=== PATIENT | female | born 1935 | race Two or more races ===

== ENCOUNTER 2018-01-09 07:14 | Day surgery (SDC) | payer MEDICARE ==
[~2018-01-09 07:14] MED LIST: ? HTN MED; ALBU90OI INH; ALBU90OI61 INH; ASCO500 PO; ASPI81CH PO; ASPI81EC PO; Antivert25 MG PO; CALCA500CH PO; CALCAVITD PO; CARV3.125 PO; CEPH500 PO; CIPR500 PO; CLOP75 PO; CRANBERRY250 MG PO; DOCU100 PO; DULERA 200 MCG/13 GM INH; FERR325 PO; FISH1000 PO; FURO100EL; FURO20 PO; GABA100 PO; HYDACE25S PR; HYDACE5 PO; HYDACE5325 PO; HYDR1TAB94 PO; IBUP200; ISOMON20; Isosorbide Mono30 MG PO; LEVFLO500 PO; LEVO750 PO; LISHYD1012 PO; LISI5 PO; Lisinopril2.5 MG; MULTI VITAMIN1 EACH PO; NADO20 PO; NEBI10 PO; NIFE10 PO; OMEP20ER PO; OMEPRAZOLE MAGN20 MG PO; POTA8; POTCHL10ER PO; POTCHL20ER PO; PRAV20 PO; Percocet 5-3251 EACH PO; Pravachol40 MG PO; RANI150 PO; ZESTORETIC 20-121 E1 PO; Zofran4 MG PO
[2018-01-20 09:07] LABS: Performing Lab SYM; Test Name FLOW
[2018-01-21 10:00] LABS: Result SEE PATHOTH RESULTS
[2018-02-09] MEDS ORDERED: SPIR25 PO ×2 (09:00→09:01)
[2018-02-09] MEDS ORDERED: FURO20 PO (09:01)
[2018-02-09] MEDS ORDERED: One Daily1 EAC3 PO (09:02)
[2018-02-09] MEDS ORDERED: CALTRATE 600+D1 EAC1 PO (09:02)
== END 2018-01-09 23:07 | disposition home or self-care (01) ==
LOC: MOI MAM 07:14
PROVIDERS: Nurse Practitioner Family
PROC: 0H9T3ZX Drainage of Right Breast, Percutaneous Approach, Diagnostic (ICD-10-PCS; principal; 2018-01-09)
PROC: 0HBT3ZX Excision of Right Breast, Percutaneous Approach, Diagnostic (ICD-10-PCS; principal; 2018-01-09)
DX: C50.411 Malignant neoplasm of upper-outer quadrant of right female breast (principal); Z17.1 Estrogen receptor negative status [ER-]
CPT/HCPCS: 19000; 19083; 76942; 77065; 88108; 88305; 88342; 88360; 88363; 88374; A4648

== ENCOUNTER 2018-02-10 07:59 | Day surgery (SDC) | payer MEDICARE ==
[~2018-02-10] VITALS: Ht 152.4 cm; Wt 86.6 kg
[~2018-02-10 07:59] MED LIST changes: +CALTRATE 600+D1 EAC1 PO; +One Daily1 EAC3 PO; +SPIR25 PO
[2018-02-16 15:22] LABS: Performing Lab SYMBIODX; Test Name TISSUE BLOCK
[2018-02-25 09:09] LABS: Result SEE PATHOTH RESULTS
== END 2018-02-11 10:30 | disposition home or self-care (01) ==
LOC: NM 07:59 → ORSCMMR 07:59 → NM 09:00 → ORSCMMR 13:33 → SURS 13:33 → NM 02-11 10:30 → SURS 02-11 10:30
PROVIDERS: Surgery
PROC: 07B50ZX Excision of Right Axillary Lymphatic, Open Approach, Diagnostic (ICD-10-PCS; principal; 2018-02-10 11:00)
PROC: 0HTT0ZZ Resection of Right Breast, Open Approach (ICD-10-PCS; principal; 2018-02-10 11:00)
DX: C50.411 Malignant neoplasm of upper-outer quadrant of right female breast (principal); Z17.1 Estrogen receptor negative status [ER-]; D36.0 Benign neoplasm of lymph nodes; I10 Essential (primary) hypertension; J44.9 Chronic obstructive pulmonary disease, unspecified; I50.9 Heart failure, unspecified; I25.2 Old myocardial infarction; Z99.81 Dependence on supplemental oxygen; K21.9 Gastro-esophageal reflux disease without esophagitis; Z79.899 Other long term (current) drug therapy; E66.01 Morbid (severe) obesity due to excess calories; Z68.37 Body mass index [BMI] 37.0-37.9, adult; Z87.891 Personal history of nicotine dependence
CPT/HCPCS: 38792; 88307; 88341; 88342; 88360; 88374; 94640; 94760; A9520; J1100; J2405; J3010; J7120; Q9968

== ENCOUNTER 2018-07-03 16:04 | Emergency (ER) | payer MEDICARE ==
[~2018-07-03] VITALS: Ht 152.4 cm; Wt 91.6 kg
[2018-07-03 16:52] LABS: BASOPHILS ABSOLUTE AUTO 0.09 K/mm3 (0.00-0.23); BASOPHILS PERCENT AUTO 1 % (0-2); EOSINOPHILS ABSOLUTE AUTO 0.33 K/mm3 (0.00-0.68); EOSINOPHILS PERCENT AUTO 5 % (0-6); Hematocrit 38.4 % (33.0-51.0); Hemoglobin 12.2 g/dL (11.5-16.0); IMMATURE GRAN ABSOLUTE AUTO 0.02 K/mm3 (0.00-0.10); IMMATURE GRAN PERCENT AUTO 0 % (0-1); LYMPHOCYTES ABSOLUTE AUTO 0.95 K/mm3 (0.84-5.20); LYMPHOCYTES PERCENT AUTO 14 % (21-46); MONOCYTES ABSOLUTE AUTO 0.77 K/mm3 (0.16-1.47); MONOCYTES PERCENT AUTO 12 % (4-13); Mean Corpuscular HGB 27.6 pg (26.0-34.0); Mean Corpuscular HGB Conc 31.8 g/dL (31.5-36.5); Mean Corpuscular Volume 87 fL (80-100); Mean Platelet Volume 9.6 fL (9.1-12.4); NEUTROPHILS ABSOLUTE AUTO 4.55 K/mm3 (1.96-9.15); NEUTROPHILS PERCENT AUTO 68 % (41-73); Platelet Count 334 K/mm3 (150-400); RDW Coefficient Variation 14.6 % (11.7-14.2); RDW Standard Deviation 46.5 fL (35.1-46.3); Red Blood Cell Count 4.42 M/mm3 (3.80-5.20); White Blood Cell Count 6.71 K/mm3 (4.00-11.30)
[2018-07-03 17:21] LABS: Alanine Aminotransfer (ALT/SGP 42 U/L (12-78); Albumin, Blood 3.6 g/dL (3.4-5.0); Albumin/Globulin Ratio 0.8 (0.8-1.8); Alk Phos 140 U/L (50-136); Anion Gap 9 mmol/L (6-16); Aspartate Aminotrans (AST/SGOT 32 U/L (12-37); Bilirubin, Total 0.5 mg/dL (0.1-1.0); Blood Urea Nitrogen 22 mg/dL (8-24); Bun/Creatinine Ratio 21.8 (12.0-20.0); CO2, Blood 28 mmol/L (21-32); Chloride, Blood 97 mmol/L (98-108); Creatinine, Blood 1.01 mg/dL (0.40-1.00); Globulin, Blood 4.4 g/dL (2.2-4.0); Glomerular Filtration Rate 55 (60-); Glucose, Blood 101 mg/dL (70-99); Potassium, Blood 4.3 mmol/L (3.5-5.5); Sodium, Blood 134 mmol/L (136-145); Troponin I <0.015 ng/mL (0.000-0.040)
[2018-07-03] MEDS ORDERED: Zithromax250 MG PO (19:11)
== END 2018-07-03 21:04 | disposition home or self-care (01) ==
LOC: ER 16:04
PROVIDERS: Emergency Medicine
DX: I50.9 Heart failure, unspecified (principal); J40 Bronchitis, not specified as acute or chronic; I25.2 Old myocardial infarction; Z88.0 Allergy status to penicillin; Z88.2 Allergy status to sulfonamides; Z88.1 Allergy status to other antibiotic agents; Z88.5 Allergy status to narcotic agent; Z88.8 Allergy status to other drugs, medicaments and biological substances; Z79.899 Other long term (current) drug therapy; Z87.891 Personal history of nicotine dependence
CPT/HCPCS: 36415; 71046; 80053; 83880; 84484; 85025; 93005; 93010; 96374; 99285-25; J1940

== ENCOUNTER 2018-07-07 07:55 | Inpatient (IN) | payer MEDICARE ==
[~2018-07-07] VITALS: Ht 152.4 cm; Wt 91.1 kg
[~2018-07-07 07:55] MED LIST changes: +Zithromax250 MG PO
[2018-07-07 08:23] LABS: BASOPHILS ABSOLUTE AUTO 0.09 K/mm3 (0.00-0.23); BASOPHILS PERCENT AUTO 1 % (0-2); EOSINOPHILS ABSOLUTE AUTO 0.51 K/mm3 (0.00-0.68); EOSINOPHILS PERCENT AUTO 6 % (0-6); Hematocrit 40.2 % (33.0-51.0); Hemoglobin 12.4 g/dL (11.5-16.0); IMMATURE GRAN ABSOLUTE AUTO 0.02 K/mm3 (0.00-0.10); IMMATURE GRAN PERCENT AUTO 0 % (0-1); LYMPHOCYTES PERCENT AUTO 18 % (21-46); MONOCYTES PERCENT AUTO 9 % (4-13); Mean Corpuscular HGB 27.7 pg (26.0-34.0); Mean Corpuscular HGB Conc 30.8 g/dL (31.5-36.5); Mean Platelet Volume 9.5 fL (9.1-12.4); NEUTROPHILS ABSOLUTE AUTO 5.24 K/mm3 (1.96-9.15); NEUTROPHILS PERCENT AUTO 66 % (41-73); Platelet Count 396 K/mm3 (150-400); RDW Coefficient Variation 14.6 % (11.7-14.2); RDW Standard Deviation 47.5 fL (35.1-46.3); Red Blood Cell Count 4.47 M/mm3 (3.80-5.20); White Blood Cell Count 7.96 K/mm3 (4.00-11.30)
[2018-07-07 08:26] LABS: Mean Corpuscular Volume 90 fL (80-100)
[2018-07-07 08:34] LABS: PCO2 Arterial 59.2 mmHg (35-45); PO2 Arterial 416 mmHg (80-100); pH Blood Arterial 7.28 (7.35-7.45)
[2018-07-07 08:34] LABS: Source, Urine Catheter
[2018-07-07 08:38] LABS: Bilirubin, Urine Neg (Neg); Blood, Urine 1+ (Neg); Glucose Qualitative, Urine Neg (Neg); Ketones, Urine Neg (Neg); Leukocyte Esterase, Urine Neg (Neg); Nitrite, Urine Neg (Neg); Protein, Urine 2+ (Neg); Specific Gravity, Urine 1.015 (1.003-1.022); Urobilinogen, Urine NORM (Normal)
[2018-07-07 08:47] LABS: Albumin, Blood 3.4 g/dL (3.4-5.0); Albumin/Globulin Ratio 0.8 (0.8-1.8); Bilirubin, Total 0.5 mg/dL (0.1-1.0); Bun/Creatinine Ratio 24.3 (12.0-20.0); Calcium, Blood 8.5 mg/dL (8.5-10.1); Creatinine, Blood 1.11 mg/dL (0.40-1.00); Globulin, Blood 4.5 g/dL (2.2-4.0); Potassium, Blood 4.5 mmol/L (3.5-5.5); Total Protein, Blood 7.9 g/dL (6.4-8.2); Troponin I 0.052 ng/mL (0.000-0.040)
[2018-07-07 08:54] LABS: Appearance, Urine Clear (Clear); Color, Urine Yellow (P-Yellow)
[2018-07-07 09:00] LABS: Bacteria Not Seen /hpf; Red Blood Cells, Urine 0-2 /hpf (0-2); Squamous Epithelial Cells Rare /hpf (Few)
[2018-07-08 05:12] LABS: PCO2 Arterial 43.4 mmHg (35-45); PO2 Arterial 78.6 mmHg (80-100); pH Blood Arterial 7.48 (7.35-7.45)
[2018-07-08 07:44] LABS: BASOPHILS ABSOLUTE AUTO 0.01 K/mm3 (0.00-0.23); BASOPHILS PERCENT AUTO 0 % (0-2); EOSINOPHILS PERCENT AUTO 0 % (0-6); Hematocrit 31.2 % (33.0-51.0); Hemoglobin 10.1 g/dL (11.5-16.0); IMMATURE GRAN ABSOLUTE AUTO 0.03 K/mm3 (0.00-0.10); IMMATURE GRAN PERCENT AUTO 0 % (0-1); LYMPHOCYTES PERCENT AUTO 15 % (21-46); MONOCYTES ABSOLUTE AUTO 0.77 K/mm3 (0.16-1.47); MONOCYTES PERCENT AUTO 10 % (4-13); Mean Corpuscular HGB 27.9 pg (26.0-34.0); Mean Corpuscular HGB Conc 32.4 g/dL (31.5-36.5); Mean Platelet Volume 9.6 fL (9.1-12.4); NEUTROPHILS ABSOLUTE AUTO 5.61 K/mm3 (1.96-9.15); NEUTROPHILS PERCENT AUTO 75 % (41-73); Platelet Count 291 K/mm3 (150-400); RDW Coefficient Variation 14.7 % (11.7-14.2); RDW Standard Deviation 45.9 fL (35.1-46.3); Red Blood Cell Count 3.62 M/mm3 (3.80-5.20); White Blood Cell Count 7.52 K/mm3 (4.00-11.30)
[2018-07-08 07:47] LABS: Mean Corpuscular Volume 86 fL (80-100)
[2018-07-08 07:55] LABS: Albumin/Globulin Ratio 0.8 (0.8-1.8); Bilirubin, Total 0.5 mg/dL (0.1-1.0); Bun/Creatinine Ratio 23.1 (12.0-20.0); Calcium, Blood 8.7 mg/dL (8.5-10.1); Creatinine, Blood 1.04 mg/dL (0.40-1.00); Globulin, Blood 3.7 g/dL (2.2-4.0); Potassium, Blood 3.8 mmol/L (3.5-5.5); Total Protein, Blood 6.7 g/dL (6.4-8.2)
[2018-07-09 04:27] LABS: BASOPHILS ABSOLUTE AUTO 0.03 K/mm3 (0.00-0.23); BASOPHILS PERCENT AUTO 0 % (0-2); EOSINOPHILS ABSOLUTE AUTO 0.01 K/mm3 (0.00-0.68); EOSINOPHILS PERCENT AUTO 0 % (0-6); Hematocrit 34.8 % (33.0-51.0); Hemoglobin 11.6 g/dL (11.5-16.0); IMMATURE GRAN ABSOLUTE AUTO 0.03 K/mm3 (0.00-0.10); IMMATURE GRAN PERCENT AUTO 0 % (0-1); LYMPHOCYTES ABSOLUTE AUTO 1.43 K/mm3 (0.84-5.20); LYMPHOCYTES PERCENT AUTO 16 % (21-46); MONOCYTES PERCENT AUTO 8 % (4-13); Mean Corpuscular HGB 28.2 pg (26.0-34.0); Mean Corpuscular HGB Conc 33.3 g/dL (31.5-36.5); Mean Corpuscular Volume 85 fL (80-100); Mean Platelet Volume 9.5 fL (9.1-12.4); NEUTROPHILS ABSOLUTE AUTO 6.76 K/mm3 (1.96-9.15); NEUTROPHILS PERCENT AUTO 76 % (41-73); Platelet Count 325 K/mm3 (150-400); RDW Coefficient Variation 14.6 % (11.7-14.2); RDW Standard Deviation 44.6 fL (35.1-46.3); Red Blood Cell Count 4.11 M/mm3 (3.80-5.20); White Blood Cell Count 8.96 K/mm3 (4.00-11.30)
[2018-07-09 04:48] LABS: Bun/Creatinine Ratio 26.6 (12.0-20.0); Calcium, Blood 8.7 mg/dL (8.5-10.1); Creatinine, Blood 1.09 mg/dL (0.40-1.00); Potassium, Blood 3.7 mmol/L (3.5-5.5)
[2018-07-10 04:36] LABS: Bun/Creatinine Ratio 27.3 (12.0-20.0); Calcium, Blood 8.9 mg/dL (8.5-10.1); Creatinine, Blood 1.21 mg/dL (0.40-1.00); Potassium, Blood 3.8 mmol/L (3.5-5.5)
[2018-07-11 06:19] LABS: Bun/Creatinine Ratio 35.5 (12.0-20.0); Calcium, Blood 8.6 mg/dL (8.5-10.1); Creatinine, Blood 1.21 mg/dL (0.40-1.00); Potassium, Blood 3.8 mmol/L (3.5-5.5)
[2018-07-11] MEDS ORDERED: LEVFLO500 PO (14:31)
== END 2018-07-11 15:02 | disposition home health service (06) | DRG 291 ==
LOC: ER 07:55 → ICUW 08:51 → ICUE 08:51 → PCU 07-08 13:21 → MEDS 07-10 16:37 → ENPENDDIS 07-11 11:30 → MEDS 07-11 15:02
PROVIDERS: Emergency Medicine; Internal Medicine; Internal Medicine Critical Care Medicine
DX: I11.0 Hypertensive heart disease with heart failure (principal); J96.21 Acute and chronic respiratory failure with hypoxia; J18.9 Pneumonia, unspecified organism; J96.22 Acute and chronic respiratory failure with hypercapnia; E87.2 Acidosis; E87.1 Hypo-osmolality and hyponatremia; C34.90 Malignant neoplasm of unspecified part of unspecified bronchus or lung; N17.9 Acute kidney failure, unspecified; I50.43 Acute on chronic combined systolic (congestive) and diastolic (congestive) heart failure; Z95.0 Presence of cardiac pacemaker; E87.5 Hyperkalemia; I25.2 Old myocardial infarction; M81.0 Age-related osteoporosis without current pathological fracture; Z66 Do not resuscitate; Z85.3 Personal history of malignant neoplasm of breast; Z99.81 Dependence on supplemental oxygen; Z87.891 Personal history of nicotine dependence; I25.10 Atherosclerotic heart disease of native coronary artery without angina pectoris; G47.33 Obstructive sleep apnea (adult) (pediatric); E21.3 Hyperparathyroidism, unspecified; I95.9 Hypotension, unspecified
CPT/HCPCS: 36415; 36600; 51702; 71045; 71046; 80048; 80053; 81001; 82803; 83880; 84484; 85025; 87070; 87205; 93005; 93010; 93970; 94640; 94660; 94760; 94762; 96374; 97110; 97116; 97162; 97165; 97530; 97535; 99285-25; G8978; G8979; G8987; G8988; J1650; J1940; J1956

== ENCOUNTER 2018-11-25 12:00 | Inpatient (IN) | payer MEDICARE ==
[~2018-11-25] VITALS: Ht 162.6 cm; Wt 89.0 kg
[2018-11-25 12:24] LABS: BASOPHILS ABSOLUTE AUTO 0.12 K/mm3 (0.00-0.23); BASOPHILS PERCENT AUTO 1 % (0-2); EOSINOPHILS ABSOLUTE AUTO 0.57 K/mm3 (0.00-0.68); EOSINOPHILS PERCENT AUTO 6 % (0-6); IMMATURE GRAN ABSOLUTE AUTO 0.03 K/mm3 (0.00-0.10); IMMATURE GRAN PERCENT AUTO 0 % (0-1); LYMPHOCYTES ABSOLUTE AUTO 2.48 K/mm3 (0.84-5.20); LYMPHOCYTES PERCENT AUTO 27 % (21-46); MONOCYTES ABSOLUTE AUTO 0.84 K/mm3 (0.16-1.47); MONOCYTES PERCENT AUTO 9 % (4-13); Mean Corpuscular HGB 28.6 pg (26.0-34.0); Mean Corpuscular HGB Conc 31.1 g/dL (31.5-36.5); Mean Corpuscular Volume 92 fL (80-100); Mean Platelet Volume 9.5 fL (9.1-12.4); NEUTROPHILS PERCENT AUTO 57 % (41-73); Platelet Count 375 K/mm3 (150-400); RDW Standard Deviation 51.2 fL (35.1-46.3); White Blood Cell Count 9.34 K/mm3 (4.00-11.30)
[2018-11-25 12:31] LABS: PO2 Arterial 155 mmHg (80-100); pH Blood Arterial 7.25 (7.35-7.45)
[2018-11-25 12:32] LABS: PCO2 Arterial 58 mmHg (35-45)
[2018-11-25] MEDS ORDERED: Klor-Con 1010 MEQ PO (12:34)
[2018-11-25 12:49] LABS: Albumin, Blood 3.7 g/dL (3.4-5.0); Albumin/Globulin Ratio 0.8 (0.8-1.8); Bilirubin, Total 0.4 mg/dL (0.1-1.0); Bun/Creatinine Ratio 27.7 (12.0-20.0); Creatinine, Blood 1.3 mg/dL (0.40-1.00); Globulin, Blood 4.8 g/dL (2.2-4.0); Potassium, Blood 4.5 mmol/L (3.5-5.5); Total Protein, Blood 8.5 g/dL (6.4-8.2)
--- NOTE | 2018-11-25 17:18 | NUR ---
NURSING PCU DAYSHIFT SUMMARY: Assumed care of pt at approx 1615. Arrived from ER via gurney accompanied by RT and RN. Xfer to unit bed using slider sheet. Skin is fragile though no breakdown noted, scattered bruising to UE's. Pt is lethargic, not oriented at this time and only responsive to physical stimuli. Only answers 1-2 words before falling back asleep. Tele in place, paced, BP stable, trace general edema. L/S w/crackles t/o, O2 sat mid 90's on bipap w/settings /6, backup rate 18, FiO2 50%, continuous bedside O2 monitoring. Abd soft, BT+, inconinent of urine, attends in place. PIV x1, D5 1/2NS w/KCL infusing at 75cc/hr x1 liter. No s/s of acute distress at this time. Pt appears to be resting comfortably. Family at bedside, plan of care discussed. Critical troponin results received, will rpt to PMD. Family denies any questions/needs at this time, call light in reach, bed alarm set for safety purposes, cont to monitor for changes.
[2018-11-26 04:41] LABS: PCO2 Arterial 42.2 mmHg (35-45); PO2 Arterial 67.5 mmHg (80-100); pH Blood Arterial 7.42 (7.35-7.45)
--- NOTE | 2018-11-26 05:59 | NUR ---
SHIFT SUMMARY PT ALERT AND ORIENTED X 3 THROUGHOUT SHIFT. SHE SLEPT OFF AND ON DURING THE NIGHT. SHE DENIED ANY COMPLAINTS OF PAIN, THOUGH SHE WAS UNCOMFORTABLE IN HER HOSPITAL BED. SHE WAS REPOSITIONED FREQUENTLY TO ASSIST WITH HER BACK DISCOMFORT. PT WAS ABLE TO TOLERATE BEING OFF OF BIPAP T/O MAJORITY OF THE SHIFT, AND HAS BEEN ON 3 LITERS O2 VIA NC WITH SATS IN MID 90'S. SHE HAD NO FURTHER ACUTE CHANGES TO LOC OR MENTATION AND HER VITALS WERE STABLE DURING THE NIGHT. PT DENIED ANY UNMET NEEDS DURING THE NIGHT. SHE HAS HER BED IN THE LOWEST POSITION, CALL LIGHT IN REACH AND BED ALARM ACTIVE. SHE WILL CONTINUE TO BE MONITORED UNTIL HANDOFF TO DAYSHIFT RN.
[2018-11-26 07:03] LABS: BASOPHILS PERCENT AUTO 0 % (0-2); EOSINOPHILS PERCENT AUTO 0 % (0-6); Hematocrit 36.4 % (33.0-51.0); Hemoglobin 11.7 g/dL (11.5-16.0); IMMATURE GRAN ABSOLUTE AUTO 0.01 K/mm3 (0.00-0.10); IMMATURE GRAN PERCENT AUTO 0 % (0-1); LYMPHOCYTES ABSOLUTE AUTO 0.72 K/mm3 (0.84-5.20); LYMPHOCYTES PERCENT AUTO 13 % (21-46); MONOCYTES ABSOLUTE AUTO 0.12 K/mm3 (0.16-1.47); MONOCYTES PERCENT AUTO 2 % (4-13); Mean Corpuscular HGB 28.1 pg (26.0-34.0); Mean Corpuscular HGB Conc 32.1 g/dL (31.5-36.5); Mean Platelet Volume 9.8 fL (9.1-12.4); NEUTROPHILS ABSOLUTE AUTO 4.66 K/mm3 (1.96-9.15); NEUTROPHILS PERCENT AUTO 85 % (41-73); Platelet Count 273 K/mm3 (150-400); RDW Coefficient Variation 14.9 % (11.7-14.2); Red Blood Cell Count 4.17 M/mm3 (3.80-5.20); White Blood Cell Count 5.51 K/mm3 (4.00-11.30)
[2018-11-26 07:07] LABS: Mean Corpuscular Volume 87 fL (80-100)
[2018-11-26 07:24] LABS: Albumin, Blood 3.2 g/dL (3.4-5.0); Albumin/Globulin Ratio 0.8 (0.8-1.8); Bilirubin, Total 0.5 mg/dL (0.1-1.0); Calcium, Blood 8.8 mg/dL (8.5-10.1); Globulin, Blood 4.2 g/dL (2.2-4.0); Potassium, Blood 4.7 mmol/L (3.5-5.5); Total Protein, Blood 7.4 g/dL (6.4-8.2)
--- NOTE | 2018-11-26 07:43 | NUR ---
NURSING PCU DAYSHIFT: Assumed care of pt at approx 0700. A/O, very pleasant, cooperative w/care, mildly [place]. Denies any pain/discomfort at rest. General weakness noted, able to xfer w/one staff assist. Skin is fragile w/scattered bruising noted to UE's, no breakdown noted. Tele in place, NSR w/BBB and occ paced, no c/o CP/pressure, BP stable, trace general edema. L/S w/crackles t/o, respirations shallow, dyspnea w/exertion, O2 sat low to mid 90's on 2L NC, moist productive cough. Abd SNT, BT+, voiding w/o difficulty though incontinent at times, attends in place. 18g PIV present in RAC, D5 1/2NS w/KCL infusing at 75cc/hr x1 liter. No s/s of acute distress at this time. Pt OOB to BSC and chair w/one staff assist, tolerated fairly well and respiratory status remained stable. RT at bedside for breathing tx. Pt denies any current needs or questions regarding plan of care, call light in reach. Awaiting rounding from PMD, cont to monitor for any changes.
--- NOTE | 2018-11-26 19:12 | NUR ---
NURSING PCU DAYSHIFT SUMMARY: Pt has continued to do well t/o the shift. O2 sat remained stable on 2L NC. OOB to chair for all meals and t/o much of the afternoon while visiting w/family. Seen by PMD, new d/o received. Pt is hopeful for possible discharge home tomorrow. Pt and daughter deny any questions/needs regarding plan of care, call light in reach, rpt provided to ADRIANNE RN.
--- NOTE | 2018-11-27 03:22 | NUR ---
PATIENT UPDATE PATIENT WOKE UP AT APPROX 0300. SHE CALLED THE RN USING HER CALL LIGHT. PT ASKED FOR A BREATHING TREATMENT AND APPEARED TO BE HAVING SOME RESPIRATORY DISTRESS. SHE WAS AUDIBLY WHEEZY WHEN RN ENTERED ROOM, AND WAS OBSERVED TO BE STRUGGLING TO BREATHE. RN NOTIFIED RESPIRATORY THERAPIST AND HE CAME INTO PROVIDE TREATMENT. ON AUSCULTATION AND OBSERVATION, IT WAS DECIDED THAT PATIENT NEEDED TO BE BACK ON BIPAP. DOCTOR WAS NOTIFIED AND ORDERED BIPAP PLACEMENT. PT IS CURRENTLY ON BIPAP, SETTINGS 12/6 AT 30%. SHE IS BREATHING EASIER AND HER WHEEZES HAVE SUBSIDED SLIGHTLY. PT WILL CONTINUE TO BE MONITORED. RT STATED SEVERE RESPIRATORY DISTRESS.
--- NOTE | 2018-11-27 06:53 | NUR ---
SHIFT SUMMARY PT WAS ALERT AND ORIENTED EARLY IN SHIFT. SHE MAINTAINED HER LOC, BUT HAD A BOUT OF RESP DISTRESS, WHICH CAUSED SOME ANXIETY. (SEE PREVIOUS NOTE) PT WAS PLACED ON BIPAP AND HAS SLEPT COMFORTABLY FOLLOWING PLACEMENT OF BIPAP. HER O2 SATURATION CAME UP, SHE IS BREATHING EASIER AND HER HEART RATE HAS IMPROVED. PT HAS BEEN ABLE TO USE HER CALL LIGHT TO MAKE NEEDS KNOWN, DENIED ANY UNMET AND WILL CONTINUE TO BE MONITORED UNTIL HANDOFF TO DAYSHIFT RN.
--- NOTE | 2018-11-27 08:00 | NUR ---
INITIAL ASSESSMENT: PT IS OOB TO CHAIR THIS MORNING AND REQUESTING TO BE TAKEN OFF BI-PAP AND PLACED ON NASAL CANNULA. PT PLACED ON 3L VIA NC, BIOX IN THE LOW 90S. PT DENIES RESP DISTRESS AT THIS TIME. PT ALERT AND OX3. PT DENIES PAIN AT THIS TIME. LS DIM IN THE BASES. HRR WITH MURMUR, 100% PACED AT 60 BPM PER OUTSIDE MACHINIST. BT+. PPP. PT HAS TRACE EDEMA TO BLE. PT HYPERTENSIVE OTHER VSS. AM MEDS GIVEN. PT DENIES OTHER NEEDS AT THIS TIME. CALL LIGHT IN REACH, WILL CONTINUE TO MONITOR.
--- NOTE | 2018-11-27 08:40 | NUR ---
REPORT GIVEN TO JOANNA CONTROL SYSTEMS TECHNICIAN TO ASSUME CARE.
--- NOTE | 2018-11-27 10:23 | NUR ---
ASSUMED CARE NOTE REPORT RECEIVED FROM CHRISTIANO BILLINGS RN. PT RESTING IN BED WITH BIPAP ON. PT REQUESTING BREAK FROM BIPAP. BIPAP REMOVED AND O2 AT 3LPM VIA NC PLACED ON PT. SPO2 READING 91-92%. PT DENIES ANY SOB/DYSPNEA. PT WITH OCCASIONAL PRODUCTIVE COUGH, SPUTUM THICK CLEAR WITH [place]. RHYTHM SHOWING PACED WITH HR IN 60-70S. PT DENIES CHEST PAIN/PRESSURE. SEE FLOWSHEET FOR VS. BED IN LOWEST POSITION, UPPER SIDE RAILS RAISED, CALL LIGHT IN REACH. FAMILY BEDSIDE. WILL CONT TO MONITOR PT.
--- NOTE | 2018-11-27 13:00 | NUR ---
ASSUMED CARE OF PATIENT, REPORT RECIEVED FROM JOANNA BAKER. PT IS RESTING COMFORTABLY IN BED. PT STATES SHE WOULD LIKE TO TAKE A NAP, "BUT I JUST CANNOT RELAX."
--- NOTE | 2018-11-27 14:15 | NUR ---
PT GIVEN BED BATH AND LINEN CHANGE. PT IS GOING TO TRY AND REST. CALL LIGHT IN REACH.
--- NOTE | 2018-11-27 15:30 | NUR ---
PT ASSISTED TO BSC. PT BECAME SOB WITH EXERTION REQUIRING THE BI-PAP TO BE PUT BACK ON ONCE IN BED. RESP TX AT BEDSIDE FOR BREATHING TX. PT DENIES OTHER NEEDS AT THIS TIME. CALL LIGHT IN REACH.
--- NOTE | 2018-11-27 16:30 | NUR ---
PT IS RESTING COMFORTABLY IN BED WITH EYES CLOSED WITH THE BI-PAP ON. VSS. PT DISCUSSED WITH ME SHE NORMALLY TAKES A PAIN MEDICATION AT HOME AND SHE FEELS SHE WOULD BE MORE COMFORTABLE IF WE COULD GET IT ORDERED. CALL PLACED TO DR. NGUYEN, SEE NEW ORDERS.
--- NOTE | 2018-11-27 20:11 | NUR ---
PT HAS HAD A ROUGH DAY. SHE TOLERATED BEING OOB TO THE CHAIR FOR BREAKFAST. OTHERWISE PT HAS BEEN WANTING TO REST DUE TO LACK OF SLEEP AND BREATHING DIFFICULTIES. PT HAD TO WEAR THE BI-PAP A COUPLE OF TIMES FOR RESCUE. BP HAS BEEN A LITTLE HIGH, MD AWARE. NO ACUTE CHANGES THIS SHIFT, REPORT GIVEV TO NISHA SILVER RN.
[2018-11-28 05:21] LABS: Bun/Creatinine Ratio 41.7 (12.0-20.0); Calcium, Blood 9.1 mg/dL (8.5-10.1); Creatinine, Blood 1.08 mg/dL (0.40-1.00); Potassium, Blood 4.7 mmol/L (3.5-5.5)
--- NOTE | 2018-11-28 05:46 | NUR ---
SHIFT SUMMARY PT SLEEPING IN ROOM COMFORTABLY. NO ACUTE CHANGES IN STATUS T/O SHIFT. PT SLEPT WELL WITH BIPAP ON, TOLERATED VERY WELL. PT UP TO BSC WITH 1 PERSON SBA. MINIMAL DESATURATION W/ MOVEMENT. SKIN PWD. RESP EVEN UNLBAORED ON BIPAP. CALL LIGHT IS IN REACH. BED ALARM ON FOR SAFETY.
[2018-11-29 04:23] LABS: Bun/Creatinine Ratio 47.4 (12.0-20.0); Calcium, Blood 9.1 mg/dL (8.5-10.1); Creatinine, Blood 1.16 mg/dL (0.40-1.00); Potassium, Blood 4.6 mmol/L (3.5-5.5)
--- NOTE | 2018-11-29 06:18 | NUR ---
SHIFT SUMMARY PT IN ROOM SLEEPING COMFORTABLY. NO ACUTE CHANGES IN STATUS SINCE ASSESSMENT. PT WAS ABLE TO STAND AND MOVE TO BSC W/O ASSISTANCE. PER PROVIDER NO BIPAP WAS USED LAST NIGHT FOR 24 HR PERIOD OF OBSERVATION. PT WORE 2L O2 VIA NC T/O AND TOLERATED WELL. RESP EVEN UNLABORED W/ SATS >92%. PT DID DEVELOP SOME WHEEZES EARLY THIS AM. DENIES SOB. CALL LIGHT IS IN REACH.
--- NOTE | 2018-11-29 18:37 | NUR ---
PT HAS JUST BEEN SETTLED IN TO ROOM. PT HAS TWO WARM BLANKETS UPON REQUEST AND REMOTE IN HAND. ONE FAMILLY MEMBER IS SITTING WITH HER AT THIS TIME. PT SEEM COOPERATIVE OF CARE. NO DISTRESS NOTED AT THIS TIME. IS A ONE PERSON WITH WALKER TO BEDSIDE COMMODE. CALLS APPROPRIATELY.
[2018-11-30 06:15] LABS: Bun/Creatinine Ratio 52.7 (12.0-20.0); Calcium, Blood 8.9 mg/dL (8.5-10.1); Creatinine, Blood 1.1 mg/dL (0.40-1.00); Potassium, Blood 4.2 mmol/L (3.5-5.5)
--- NOTE | 2018-11-30 08:04 | NUR ---
11/30/18 0620 [place] [facility] [place] VITALS STABLE AND FEELING SLIGHTLY BETTER THIS AM. PAIN MED HELPS WITH CHRONIC BACK PAIN. REPOSITIONS SELF IN BED.
--- NOTE | 2018-11-30 18:37 | NUR ---
SHIFT SUMMARY PT UP TO CHAIR MOST OF DAY. FAMILY IN AND OUT OF ROOM. 1 PERSON ASSIST WITH AMBULATION TO BATHROOM USING FWW. GETS WINDED WITH EXERTION OR ACTIVITY BUT RECOVERS SLOWLY. POTENTIAL DISCHARGE TOMORROW.
--- NOTE | 2018-12-01 06:34 | NUR ---
12/01/18 0800 Pt sleeping now. WAS MEDICATED FOR PAIN SEVERAL TIMES DURING THE NIGHT. WAS IRRITABLE THIS AM BECAUSE SHE HAD TROUBLE SLEEPING DUE TO NOISEY ACTIVITES IN HALLWAY. PT REQUESTED TO SLEEP AND NOT BE AWAKENED FOR SHIFT REPORT.
[2018-12-01] MEDS ORDERED: ALBU3IS INH (14:38)
[2018-12-01] MEDS ORDERED: PRED10 PO (14:40)
[2018-12-01] MEDS ORDERED: ASPI81CH PO (14:41)
--- NOTE | 2018-12-01 15:22 | NUR ---
DISCHARGE SUMMARY PT DISCHARGED AT 1522. SHE WAS ASSISTED DOWN STAIRS IN A WHEELCHAIR FOR HER RIDE HOME. THE PT LEFT WITH HER SON-IN-LAW, WHOM SHE LIVES WITH.
== END 2018-12-01 15:19 | disposition home health service (06) | DRG 189 ==
LOC: ER 12:00 → PCU 14:52 → MEDS 11-29 18:00 → ENPENDDIS 12-01 14:11 → MEDS 12-01 15:19
PROVIDERS: Emergency Medicine; Student in an Organized Health Care Education/Training Program; ADMIT Family Medicine
PROC: 5A09357 Assistance with Respiratory Ventilation, Less than 24 Consecutive Hours, Continuous Positive Airway Pressure (ICD-10-PCS; principal; 2018-11-25)
DX: J96.21 Acute and chronic respiratory failure with hypoxia (principal); I50.33 Acute on chronic diastolic (congestive) heart failure; J44.1 Chronic obstructive pulmonary disease with (acute) exacerbation; E87.2 Acidosis; I13.0 Hypertensive heart and chronic kidney disease with heart failure and stage 1 through stage 4 chronic kidney disease, or unspecified chronic kidney disease; N17.9 Acute kidney failure, unspecified; I24.8 Other forms of acute ischemic heart disease; I49.5 Sick sinus syndrome; J96.22 Acute and chronic respiratory failure with hypercapnia; E78.5 Hyperlipidemia, unspecified; G47.33 Obstructive sleep apnea (adult) (pediatric); I35.0 Nonrheumatic aortic (valve) stenosis; Z87.891 Personal history of nicotine dependence; Z95.0 Presence of cardiac pacemaker; I25.2 Old myocardial infarction; K21.9 Gastro-esophageal reflux disease without esophagitis; Z66 Do not resuscitate; Z68.32 Body mass index [BMI] 32.0-32.9, adult; E66.9 Obesity, unspecified; I12.9 Hypertensive chronic kidney disease with stage 1 through stage 4 chronic kidney disease, or unspecified chronic kidney disease; N18.3 Chronic kidney disease, stage 3 (moderate); I25.10 Atherosclerotic heart disease of native coronary artery without angina pectoris; M81.0 Age-related osteoporosis without current pathological fracture; Z79.82 Long term (current) use of aspirin; C50.911 Malignant neoplasm of unspecified site of right female breast; Z90.13 Acquired absence of bilateral breasts and nipples
CPT/HCPCS: 36415; 36600; 71045; 71260; 80048; 80053; 82803; 84484; 85025; 85379; 93005; 93010; 93970; 94640; 94644; 94660; 94760; 94761; 94762; 96374; 96375; 97110; 97116; 97161; 97165; 97530; 97535; 99285-25; C9113; J0360; J1650; J1940; J2060; J2930; Q9967

== ENCOUNTER 2018-12-28 15:23 | Day surgery (SDC) | payer MEDICARE ==
[~2018-12-28 15:23] MED LIST changes: +ALBU3IS INH; +Klor-Con 1010 MEQ PO; +PRED10 PO
== END 2018-12-28 17:20 | disposition home or self-care (01) ==
LOC: ATC 15:23
DX: I87.8 Other specified disorders of veins (principal); J44.9 Chronic obstructive pulmonary disease, unspecified; N18.2 Chronic kidney disease, stage 2 (mild); I50.9 Heart failure, unspecified; Z95.0 Presence of cardiac pacemaker; M81.0 Age-related osteoporosis without current pathological fracture; Z85.3 Personal history of malignant neoplasm of breast; I10 Essential (primary) hypertension; E78.5 Hyperlipidemia, unspecified; K21.9 Gastro-esophageal reflux disease without esophagitis; Z88.1 Allergy status to other antibiotic agents; Z79.899 Other long term (current) drug therapy
CPT/HCPCS: 96365; J1940

== ENCOUNTER 2018-12-31 13:17 | Day surgery (SDC) | payer MEDICARE | END 2018-12-31 16:21 | disposition home or self-care (01) | LOC: ATC 13:17 | DX: I87.8 Other specified disorders of veins (principal); J44.9 Chronic obstructive pulmonary disease, unspecified; N18.2 Chronic kidney disease, stage 2 (mild); I50.9 Heart failure, unspecified; Z95.0 Presence of cardiac pacemaker; M81.0 Age-related osteoporosis without current pathological fracture; Z85.3 Personal history of malignant neoplasm of breast; I10 Essential (primary) hypertension; E78.5 Hyperlipidemia, unspecified; K21.9 Gastro-esophageal reflux disease without esophagitis; Z88.1 Allergy status to other antibiotic agents; Z79.899 Other long term (current) drug therapy | CPT/HCPCS: 96374 ==

== ENCOUNTER 2019-01-01 14:56 | Day surgery (SDC) | payer MEDICARE | END 2019-01-01 16:00 | LOC: ATC 14:56 | DX: I87.8 Other specified disorders of veins (principal); J44.9 Chronic obstructive pulmonary disease, unspecified; N18.2 Chronic kidney disease, stage 2 (mild); I50.9 Heart failure, unspecified; Z95.0 Presence of cardiac pacemaker; M81.0 Age-related osteoporosis without current pathological fracture; Z85.3 Personal history of malignant neoplasm of breast; I10 Essential (primary) hypertension; E78.5 Hyperlipidemia, unspecified; K21.9 Gastro-esophageal reflux disease without esophagitis; Z88.1 Allergy status to other antibiotic agents; Z79.899 Other long term (current) drug therapy ==

== ENCOUNTER 2019-01-14 11:37 | Emergency (ER) | payer MEDICARE ==
[~2019-01-14] VITALS: Ht 152.4 cm; Wt 87.1 kg
[~2019-01-14 11:37] MED LIST changes: +ALBU2.5V5 INH; -ALBU3IS INH; -CARV3.125 PO; +CARV6.25 PO; +Ferrous Sulfat325 M2 PO; +Lisinopril2.5 MG PO
[2019-01-14 12:16] LABS: BASOPHILS ABSOLUTE AUTO 0.06 K/mm3 (0.00-0.23); BASOPHILS PERCENT AUTO 1 % (0-2); EOSINOPHILS ABSOLUTE AUTO 0.14 K/mm3 (0.00-0.68); EOSINOPHILS PERCENT AUTO 2 % (0-6); Hematocrit 38.3 % (33.0-51.0); Hemoglobin 12.3 g/dL (11.5-16.0); IMMATURE GRAN ABSOLUTE AUTO 0.02 K/mm3 (0.00-0.10); IMMATURE GRAN PERCENT AUTO 0 % (0-1); LYMPHOCYTES ABSOLUTE AUTO 0.77 K/mm3 (0.84-5.20); LYMPHOCYTES PERCENT AUTO 9 % (21-46); MONOCYTES ABSOLUTE AUTO 0.94 K/mm3 (0.16-1.47); MONOCYTES PERCENT AUTO 11 % (4-13); Mean Corpuscular HGB 28.2 pg (26.0-34.0); Mean Corpuscular HGB Conc 32.1 g/dL (31.5-36.5); Mean Corpuscular Volume 88 fL (80-100); Mean Platelet Volume 9.7 fL (9.1-12.4); NEUTROPHILS ABSOLUTE AUTO 6.99 K/mm3 (1.96-9.15); NEUTROPHILS PERCENT AUTO 78 % (41-73); Platelet Count 277 K/mm3 (150-400); RDW Coefficient Variation 14.7 % (11.7-14.2); RDW Standard Deviation 47.4 fL (35.1-46.3); Red Blood Cell Count 4.36 M/mm3 (3.80-5.20); White Blood Cell Count 8.92 K/mm3 (4.00-11.30)
[2019-01-14 12:41] LABS: Albumin, Blood 3.2 g/dL (3.4-5.0); Albumin/Globulin Ratio 0.7 (0.8-1.8); Bilirubin, Total 0.7 mg/dL (0.1-1.0); Bun/Creatinine Ratio 43.1 (12.0-20.0); Calcium, Blood 9.2 mg/dL (8.5-10.1); Creatinine, Blood 0.97 mg/dL (0.40-1.00); Globulin, Blood 4.4 g/dL (2.2-4.0); Potassium, Blood 4.3 mmol/L (3.5-5.5); Total Protein, Blood 7.6 g/dL (6.4-8.2); Troponin I 0.047 ng/mL (0.000-0.040)
[2019-01-14 13:16] LABS: Source, Urine Clean Catch
[2019-01-14 13:48] LABS: Bilirubin, Urine Neg (Neg); Blood, Urine Neg (Neg); Glucose Qualitative, Urine Neg (Neg); Ketones, Urine Neg (Neg); Leukocyte Esterase, Urine Neg (Neg); Nitrite, Urine Neg (Neg); Protein, Urine Neg (Neg); Urobilinogen, Urine NORM (Normal)
[2019-01-14 14:27] LABS: Color, Urine Pale Yellow (P-Yellow)
[2019-01-14 14:28] LABS: Appearance, Urine Clear (Clear)
== END 2019-01-14 15:15 | disposition home or self-care (01) ==
LOC: ER 11:37
PROVIDERS: Emergency Medicine
DX: I50.9 Heart failure, unspecified (principal); I25.2 Old myocardial infarction; J44.9 Chronic obstructive pulmonary disease, unspecified; Z88.0 Allergy status to penicillin; Z88.2 Allergy status to sulfonamides; Z88.8 Allergy status to other drugs, medicaments and biological substances; Z88.1 Allergy status to other antibiotic agents; Z79.899 Other long term (current) drug therapy; Z79.82 Long term (current) use of aspirin; Z87.891 Personal history of nicotine dependence
CPT/HCPCS: 36415; 71046; 80053; 81003; 83880; 84484; 85025; 93005; 93010; 96374; 99284-25; J1940

== ENCOUNTER 2019-01-27 08:12 | Inpatient (IN) | payer MEDICARE ==
[~2019-01-27] VITALS: Ht 152.4 cm; Wt 74.5 kg
[2019-01-27 08:49] LABS: BASOPHILS ABSOLUTE AUTO 0.06 K/mm3 (0.00-0.23); BASOPHILS PERCENT AUTO 1 % (0-2); EOSINOPHILS ABSOLUTE AUTO 0.25 K/mm3 (0.00-0.68); EOSINOPHILS PERCENT AUTO 3 % (0-6); Hematocrit 38.2 % (33.0-51.0); Hemoglobin 12.6 g/dL (11.5-16.0); IMMATURE GRAN ABSOLUTE AUTO 0.06 K/mm3 (0.00-0.10); IMMATURE GRAN PERCENT AUTO 1 % (0-1); LYMPHOCYTES ABSOLUTE AUTO 0.66 K/mm3 (0.84-5.20); LYMPHOCYTES PERCENT AUTO 9 % (21-46); MONOCYTES ABSOLUTE AUTO 0.83 K/mm3 (0.16-1.47); MONOCYTES PERCENT AUTO 11 % (4-13); Mean Corpuscular HGB 27.9 pg (26.0-34.0); Mean Corpuscular Volume 85 fL (80-100); Mean Platelet Volume 8.9 fL (9.1-12.4); NEUTROPHILS ABSOLUTE AUTO 5.47 K/mm3 (1.96-9.15); NEUTROPHILS PERCENT AUTO 75 % (41-73); Platelet Count 629 K/mm3 (150-400); RDW Coefficient Variation 14.5 % (11.7-14.2); RDW Standard Deviation 44.4 fL (35.1-46.3); Red Blood Cell Count 4.51 M/mm3 (3.80-5.20); White Blood Cell Count 7.33 K/mm3 (4.00-11.30)
[2019-01-27 09:11] LABS: Albumin, Blood 3.3 g/dL (3.4-5.0); Albumin/Globulin Ratio 0.7 (0.8-1.8); Bilirubin, Total 0.5 mg/dL (0.1-1.0); Bun/Creatinine Ratio 44.3 (12.0-20.0); Calcium, Blood 9.8 mg/dL (8.5-10.1); Creatinine, Blood 1.49 mg/dL (0.40-1.00); Total Protein, Blood 8.3 g/dL (6.4-8.2)
[2019-01-27 09:25] LABS: Troponin I 3.89 ng/mL (0.000-0.040)
[2019-01-27] MEDS ORDERED: Calcium + Vita1 EACH PO (13:15)
[2019-01-27] MEDS ORDERED: SPIR25 PO (13:16)
[2019-01-27] MEDS ORDERED: TORSE20 PO (13:17)
--- NOTE | 2019-01-27 15:39 | NUR ---
PT ORIENTED TO ROOM; FREQUENT ROUNDING EXPLAINED; BED IN LOW AND LOCKED POSITION; CALL LIGHT WITHIN REACH. DAUGHTER ATTENTIVE AND AT BEDSIDE.
--- NOTE | 2019-01-27 16:30 | NUR ---
SPOKE WITH DR. NGUYEN IN [facility]. SHE IS AWARE OF CRITICAL TROP LEVEL. NO NEW ORDERS RECEIVED. PT DENIES NAUSEA, CP, SOB NO DIAPHORESIS.
--- NOTE | 2019-01-27 18:41 | NUR ---
SHIFT SUMMARY ADMIT THIS PM FROM ED. PT DENIES CP, SOB, NAUSEA NO DIAPHORESIS. FAMILY AT BEDSIDE AND ATTENTIVE. STANDBY ASSIST TO BEDSIDE COMMODE. EATING AND DRINKING WELL. +TROP X2 DR. NGUYEN AWARE.
--- NOTE | 2019-01-28 01:47 | NUR ---
Elderly white Female with NSTMI and critical high troponins trending down from 3.89 to current 2.50. Has pacemaker placed December 26 2011. Denies chast pain. PT uses oxygen x 7 years at HS 3 l . applied o2 3l and neb tx given as per home routine. She is feeling less short of breath and continues dueal peced rate 63 with freq PVCS. Has TTT ordered. 3rd troponin set for 8 hours from 0000 draw.
--- NOTE | 2019-01-28 05:02 | NUR ---
CONTINUES ON TELE WITH PACED RATE OF 62 WITH PVCS AND BBB. ON oxygen 3 l nc with decreased SOB reported.
[2019-01-28 07:28] LABS: Bun/Creatinine Ratio 41.2 (12.0-20.0); Calcium, Blood 9.3 mg/dL (8.5-10.1); Creatinine, Blood 1.53 mg/dL (0.40-1.00); Potassium, Blood 3.8 mmol/L (3.5-5.5)
--- NOTE | 2019-01-28 11:57 | NUR ---
PT TRANSPORTED TO [facility] VIA W/C
--- NOTE | 2019-01-28 12:53 | NUR ---
PT RESTING COMFORTABLY, TOLERATES TABITHA PROCEDURE WELL. VSS. NADN. CONTINUOUS MONITORING IN PLACE. CALL LIGHT WITHIN REACH. DAUGHTER AT BEDSIDE.
--- NOTE | 2019-01-28 13:15 | NUR ---
PT RETURNED FROM [facility] VIA STRETCHER AWAKE ALERT DENIES ANY PAIN OR DISTRES. VSS.
--- NOTE | 2019-01-28 15:18 | NUR ---
Spiritual care visit conducted. Patient is lying in bed and alert when I enter patient's room. Patient is kind and openly shares about her life/family history. Patient mentions that the heart issues that she is having are scary to her. I provide anxiety containment and a calming presence. I normalize patient's experience, explore patient's belief system and provide prayer. Patient responded well and displayed evidence of reduced stress.
--- NOTE | 2019-01-29 04:30 | NUR ---
83 year old Female with hx of MT in Sep 2011 and Pacemenker placed December 26 2011 continues 100% paced with BBB and pvcs. Denies chest pain or acute distress. Continues on oxygen 3 l NC as per home rate. At home wears oxygen just at night but currently wearing all the time due to compromised cardiac status. VSS. Able to communicate. Has supportive DTR who lives with PT. Pt has DNR status. Medicated with ativan and norco 5/325 mg tab for complaints of back pain and anxiety with helpful effect.
[2019-01-29 05:39] LABS: Bun/Creatinine Ratio 33.8 (12.0-20.0); Creatinine, Blood 2.01 mg/dL (0.40-1.00)
--- NOTE | 2019-01-29 08:03 | NUR ---
RECIEVED CALL FROM [facility] THAT ANGIOGRAM WAS CANCELED TO INCREASING CREATNINE. DR. MATOS NOTIFIED, RECIEVED ORDERS FOR NS IV 150/HR. FAMILY AND PT UPDATED.
[2019-01-29 09:55] LABS: Uric Acid, Blood 10.1 mg/dL (2.6-6.0)
[2019-01-29 16:08] LABS: Mean Platelet Volume 8.8 fL (9.1-12.4); Platelet Count 563 K/mm3 (150-400)
[2019-01-29 16:19] LABS: International Normalized Ratio 1.02; Prothrombin Time Results 10.8 Sec (9.7-11.5)
--- NOTE | 2019-01-29 19:50 | NUR ---
SHIFT SUMMARY. DR. DREW CONSULT RECIEVED THIS AM BY DR. MATOS, THIS RN SPOKE WITH DR. DREW VIA CELL PHONE. IV FLUIDS AND NAC STARTED. HEPARIN DRIP STARTED THIS AFTERNOON. PT DENIES SOB, N/V, PAIN. NO OTHER CHANGES.
[2019-01-30 06:22] LABS: Hematocrit 32.3 % (33.0-51.0); Hemoglobin 10.7 g/dL (11.5-16.0)
[2019-01-30 06:39] LABS: Albumin, Blood 2.8 g/dL (3.4-5.0); Anion Gap 9 mmol/L (6-16); Blood Urea Nitrogen 59 mg/dL (8-24); Bun/Creatinine Ratio 38.6 (12.0-20.0); CO2, Blood 26 mmol/L (21-32); Calcium, Blood 9.1 mg/dL (8.5-10.1); Chloride, Blood 94 mmol/L (98-108); Creatinine, Blood 1.53 mg/dL (0.40-1.00); Glomerular Filtration Rate 34 (60-); Glucose, Blood 92 mg/dL (70-99); Phosphorus, Blood 3.4 mg/dL (2.5-4.9); Potassium, Blood 4.6 mmol/L (3.5-5.5); Sodium, Blood 129 mmol/L (136-145); Uric Acid, Blood 8.1 mg/dL (2.6-6.0)
--- NOTE | 2019-01-30 07:39 | NUR ---
LYING IN SEMI FOWLERS WITH EYES OPEN. HAD A GOOD NIGHT, WAS ABLE TO SLEEP WELL. NO C/O PAIN OR DISCOMFORT. SAFETY MEASURES IN PLACE. WILL GIVE HAND OFF TO ONCOMING SHIFT USING SBAR.
--- NOTE | 2019-01-30 15:54 | NUR ---
SUMMARY PT IS A/O X4, PLEASANT/AFFECT, UP TO CAIR/BSC/BR SBA W FWW. DX NSTEMI, SHE IS ON HEP GTT, PHARMACY ADJUST DOSE THIS AFTERNOON, INCREASE RATE TO 23.2 ML/HR. NS INFUSING CONCURRENTLY @ 100 ML/HR. GFR 34, DR DREW MANAGING RENAL FX, ELECTRLYTES. WHEN KIDNEY ISSUES CORRECTED PT TO HAVE ANGIOGRAM, PROBABLY FRIDAY OR FRIDAY/DR. LUCIANO, BIOX 94% RA.
[2019-01-31 04:31] LABS: Hemoglobin 10.6 g/dL (11.5-16.0); Mean Platelet Volume 8.8 fL (9.1-12.4); Platelet Count 513 K/mm3 (150-400)
[2019-01-31 04:51] LABS: Albumin, Blood 2.8 g/dL (3.4-5.0); Anion Gap 7 mmol/L (6-16); Blood Urea Nitrogen 38 mg/dL (8-24); Bun/Creatinine Ratio 34.5 (12.0-20.0); CO2, Blood 26 mmol/L (21-32); Calcium, Blood 8.8 mg/dL (8.5-10.1); Chloride, Blood 102 mmol/L (98-108); Glomerular Filtration Rate 50 (60-); Glucose, Blood 102 mg/dL (70-99); Magnesium, Blood 1.7 mg/dL (1.6-2.4); Phosphorus, Blood 3.3 mg/dL (2.5-4.9); Potassium, Blood 4.5 mmol/L (3.5-5.5); Sodium, Blood 135 mmol/L (136-145)
--- NOTE | 2019-01-31 05:32 | NUR ---
SHIFT SUMMARY PT A&O X4 T/O SHIFT. VSS; NO ACUTE CHANGES. 2-2.5L O2 VIA NC WHILE AWAKE, 3L AT THIS TIME. PT UP TO BSC WITH SBA; BED ALARM AND SIDE RAILS FOR SAFETY. PT STS INCREASED SOB WITH EXERTION. SLIGHT INS CRACKLES IN RL LUNG. EVEN WOB; PT ABLE TO CARRY CONVERSATION WITH EVEN WOB. TELEMETRY IN PLACE; PACED AT 60 PER TRUCK CATERER. PT DENIES CP. CHRONIC BACK PAIN MANAGED PER EMAR. CALL LIGHT IN REACH; PT DEMONSTRATES USE. WCTM UNTIL REPORT TO DAY SHIFT RN.
--- NOTE | 2019-01-31 17:56 | NUR ---
SUMMARY PT GFR & CREATININE CONTINUE TO IMPROVE. DR DREW MANAGING RENAL FX, ORDER IV NS D/C @ NOON TODAY. HEP GTT CONTINUES W/O RATE CHANGE TODAY @ 25.6 ML/HR. PLAN CONTINUES FOR HER TO HAVE ANGIOGRAM WHEN RENAL FX APPROP. PT FAMILY STATE HOPEFUL FOR FRIDAY OR FRIDAY/CARDIOLOGY. PT IS A/O, PLEASANT/COOPERATIVE T/O DAY, SBA TO CHAIR/BSC. SHE CONTINUES SOB W EXERTION, O2 @ 3L CONTIUOUS @ THIS TIME PER DR MATOS. RT PROVIDING NEB TX'S. VSS. TELE MX REPORT PACED 60'S. SUPPORTIVE FAMILY WITH PT MOST OF DAY.
--- NOTE | 2019-02-01 04:43 | NUR ---
SHIFT SUMMARY: PT IS ALERT AND ORIENTED. PT IS CALM AND COOPERATIVE WITH CARE. PT CALLS APPROPRIATELY. PT IS A ONE PERSON ASSIST TO THE BSC. PT REPORTS SOB UPON EXERTION, 3 L O2 KEEPING SATS > 90%. PT REPORTS CHRONIC BACK PAIN, GAVE PRN HYDROCODONE. PT DENIES NAUSEA AND VOMITING. PT SLEPT PERIODICALLY THROUGHOUT THE NIGHT. NO ACUTE CHANGES OR COMPLICATIONS THIS SHIFT. BED IN LOW POSITION, CALL LIGHT WITHIN REACH.
[2019-02-01 05:49] LABS: Hematocrit 36.1 % (33.0-51.0); Hemoglobin 11.1 g/dL (11.5-16.0)
[2019-02-01 06:08] LABS: Anion Gap 8 mmol/L (6-16); Blood Urea Nitrogen 25 mg/dL (8-24); Bun/Creatinine Ratio 24.8 (12.0-20.0); CO2, Blood 24 mmol/L (21-32); Calcium, Blood 9.4 mg/dL (8.5-10.1); Chloride, Blood 103 mmol/L (98-108); Creatinine, Blood 1.01 mg/dL (0.40-1.00); Glomerular Filtration Rate 55 (60-); Glucose, Blood 90 mg/dL (70-99); Magnesium, Blood 1.6 mg/dL (1.6-2.4); Phosphorus, Blood 3.5 mg/dL (2.5-4.9); Potassium, Blood 4.6 mmol/L (3.5-5.5); Sodium, Blood 135 mmol/L (136-145)
--- NOTE | 2019-02-02 03:46 | NUR ---
SHIFT SUMMARY THE PT ADMITTED FOR DIFFICULTY BREATHING AND NSTEMI. DNR. CARDIAC DIET. TELE-100 PERCENT PACED AT A RATE OF 60 PER CONTAINER FILLER. CARDIOLOGY CONSULT FOR ELEVATED TROPONIN, CHF EXACERBATION, AND ABNORMAL ECHO WITH A POSSIBLE MASS ON A VALVE. HEPARIN DRIP AT A RATE OF 21 U/KG/HR OR 25.6 MLS/HR AND A WEIGHT OF 61 KG. PT IS IN NEED OF AN ANGIOGRAM THAT WILL NEED TO BE PERFORMED BY DR. LYON PER REPORT. PT HAS A PACEMAKER. PT HAS UNDERWENT A BILATERAL MESECTOMY. 20G IV TO R FA. 1 PERSON ASSIST. 3L O2 VIA NC. TAKES MEDICATION WHOLE. THE PT PRESENTED TO THE ED WITH C/O DYSPNEA FOR SEVERAL WEEKS, AND WEAKNESS. THE PTS MOST RECENT ECHO ON 01/20 SHOWED AN EF OF 60 PERCENT AND A POSSIBLE MASS ON THE MITRAL VALVE. THE PT IS NOTED TO HAVE HH AND LIVES WITH HER DAUGHTER FOR ASSISTANCE PER REPORT. THE PT WAS FEELING QUITE ANXIOUS THIS NIGHT SECONDARY TO THE UNCERTAINTY OF UNCOMING PROCEDURES, MEDICATED PER EMAR. THE PT APPEARED TO SLEEP COMFORTABLY MOST OF THE NIGHT BUT UP A FEW TIMES TO VOID. NO APPARENT SIGNS OF ACUTE DISTRESS. ABLE TO MAKE NEEDS KNOWN AND CALL LIGHT IN REACH.
[2019-02-02 05:32] LABS: BASOPHILS ABSOLUTE AUTO 0.08 K/mm3 (0.00-0.23); BASOPHILS PERCENT AUTO 1 % (0-2); EOSINOPHILS PERCENT AUTO 5 % (0-6); Hematocrit 34.7 % (33.0-51.0); Hemoglobin 11.1 g/dL (11.5-16.0); IMMATURE GRAN ABSOLUTE AUTO 0.05 K/mm3 (0.00-0.10); IMMATURE GRAN PERCENT AUTO 1 % (0-1); LYMPHOCYTES ABSOLUTE AUTO 1.33 K/mm3 (0.84-5.20); LYMPHOCYTES PERCENT AUTO 16 % (21-46); MONOCYTES ABSOLUTE AUTO 0.73 K/mm3 (0.16-1.47); MONOCYTES PERCENT AUTO 9 % (4-13); Mean Corpuscular HGB 28.2 pg (26.0-34.0); Mean Platelet Volume 9.5 fL (9.1-12.4); NEUTROPHILS ABSOLUTE AUTO 5.78 K/mm3 (1.96-9.15); NEUTROPHILS PERCENT AUTO 69 % (41-73); Platelet Count 490 K/mm3 (150-400); RDW Coefficient Variation 14.9 % (11.7-14.2); RDW Standard Deviation 48.4 fL (35.1-46.3); Red Blood Cell Count 3.93 M/mm3 (3.80-5.20); White Blood Cell Count 8.37 K/mm3 (4.00-11.30)
[2019-02-02 05:34] LABS: Mean Corpuscular Volume 88 fL (80-100)
[2019-02-02 06:02] LABS: Magnesium, Blood 1.6 mg/dL (1.6-2.4)
[2019-02-02 06:03] LABS: Anion Gap 7 mmol/L (6-16); Blood Urea Nitrogen 21 mg/dL (8-24); Bun/Creatinine Ratio 23.5 (12.0-20.0); CO2, Blood 24 mmol/L (21-32); Calcium, Blood 9.3 mg/dL (8.5-10.1); Chloride, Blood 101 mmol/L (98-108); Creatinine, Blood 0.89 mg/dL (0.40-1.00); Glomerular Filtration Rate >60 (60-); Glucose, Blood 96 mg/dL (70-99); Phosphorus, Blood 3.8 mg/dL (2.5-4.9); Potassium, Blood 4.5 mmol/L (3.5-5.5); Sodium, Blood 132 mmol/L (136-145)
--- NOTE | 2019-02-02 07:30 | NUR ---
HEPARIN TURNED OFF PER ORDER IN ATICIPATION OF ANGIOGRAM
--- NOTE | 2019-02-02 13:47 | NUR ---
REPORT GIVEN TO GRAY BAKER ON PCU FLOOR. PATIENT LEFT ABOUT 45 MINUTES AGO TO [facility].
--- NOTE | 2019-02-02 16:00 | NUR ---
PT ARRIVED TO PCU VIA BED FROM [facility], FAMILY IN ATTENDENCE. SHE IS AWAKE A/OX3, PLEASANT AND COOPERATIVE WITH CARE, FOLLOWS COMMANDS WELL, STATES SHE IS HUNGRY, WANTS SOME JELLO. DR. COLINDRES IN TO SEE HER. TR BAND SITE IS CLEAR HAS SOME OLD BLOOD, BUT NO NEW BLEEDING, HER HANDS ARE COLD, SHE STATES THEY ALWAYS ARE, CATH SITE TO RIGHT GROIN IS SOFT, WITH A MARBLE FELT AT THE INCISON SITE, NO BLEEDING OR BRUISING NOTED, VS STABLE, AFEBRILE, NO COMPLAINTS OF PAIN. CALL LIGHT IN REACH.
--- NOTE | 2019-02-02 17:52 | NUR ---
pt doing well. vs remain stable. cath sites are clear and soft. no complaints. ate dinner without diff. call light in reach.
--- NOTE | 2019-02-02 19:24 | NUR ---
CARE ASSUMPTION PT A&O X4. TR BAND IN PLACE TO R RADIAL ACCESS SITE. R RADIAL & R GROIN ACCESS SITES WNL, NO BLEEDING, NO HEMATOMA. PT LAYING FLAT IN BED. VSS. LUNG SOUNDS CLEAR T/O. SPO2 > 92% ON RA. WILL CONTINUE TO MONITOR AND PROVIDE CARE.
[2019-02-03 04:28] LABS: BASOPHILS ABSOLUTE AUTO 0.06 K/mm3 (0.00-0.23); BASOPHILS PERCENT AUTO 1 % (0-2); EOSINOPHILS ABSOLUTE AUTO 0.34 K/mm3 (0.00-0.68); EOSINOPHILS PERCENT AUTO 5 % (0-6); Hematocrit 34.7 % (33.0-51.0); IMMATURE GRAN ABSOLUTE AUTO 0.04 K/mm3 (0.00-0.10); IMMATURE GRAN PERCENT AUTO 1 % (0-1); LYMPHOCYTES ABSOLUTE AUTO 0.59 K/mm3 (0.84-5.20); LYMPHOCYTES PERCENT AUTO 8 % (21-46); MONOCYTES ABSOLUTE AUTO 0.68 K/mm3 (0.16-1.47); MONOCYTES PERCENT AUTO 9 % (4-13); Mean Corpuscular HGB 28.2 pg (26.0-34.0); Mean Corpuscular HGB Conc 31.7 g/dL (31.5-36.5); Mean Corpuscular Volume 89 fL (80-100); Mean Platelet Volume 9.1 fL (9.1-12.4); NEUTROPHILS ABSOLUTE AUTO 5.49 K/mm3 (1.96-9.15); NEUTROPHILS PERCENT AUTO 76 % (41-73); Platelet Count 402 K/mm3 (150-400); RDW Standard Deviation 48.3 fL (35.1-46.3)
--- NOTE | 2019-02-03 04:35 | NUR ---
SHIFT SUMMARY PT A&O X4. VSS. LUNG SOUNDS CLEAR, DIM IN BASES. SPO2 > 92% ON 3L NC, TITRATED TO 2L NC THIS SHIFT. MONITOR SHOWS PACING, HR 60'S. TR BAND TO R RADIAL ACCESS SITE DEFLATION AND REMOVAL WNL THIS SHIFT, NO BLEEDING, NO HEMATOMA. TRANSPARENT DRESSING COVERING SITE & ARM BOARD IN PLACE. R GROIN ACCESS SITE DRESSED W/ GAUZE AND CLEAR DRESSING, SITE WNL, NO BLEEDING, NO HEMATOMA. PT IN BED T/O SHIFT, USING BED GLOVER W/ ASSISTANCE FOR RESTROOM USE. WILL CONTINUE TO MONITOR AND PROVIDE CARE UNTIL REPORT OFF TO DAY SHIFT RN.
[2019-02-03 04:47] LABS: Alanine Aminotransfer (ALT/SGP 29 U/L (12-78); Albumin, Blood 2.9 g/dL (3.4-5.0); Albumin/Globulin Ratio 0.8 (0.8-1.8); Alk Phos 92 U/L (50-136); Anion Gap 9 mmol/L (6-16); Aspartate Aminotrans (AST/SGOT 26 U/L (12-37); Bilirubin, Total 0.5 mg/dL (0.1-1.0); Blood Urea Nitrogen 18 mg/dL (8-24); Bun/Creatinine Ratio 19.9 (12.0-20.0); CO2, Blood 26 mmol/L (21-32); Calcium, Blood 9.3 mg/dL (8.5-10.1); Chloride, Blood 100 mmol/L (98-108); Globulin, Blood 3.8 g/dL (2.2-4.0); Glomerular Filtration Rate >60 (60-); Glucose, Blood 82 mg/dL (70-99); Magnesium, Blood 1.8 mg/dL (1.6-2.4); Phosphorus, Blood 3.8 mg/dL (2.5-4.9); Potassium, Blood 4.3 mmol/L (3.5-5.5); Sodium, Blood 135 mmol/L (136-145); Total Protein, Blood 6.7 g/dL (6.4-8.2)
[2019-02-03] MEDS ORDERED: CLOP75 PO (12:57)
[2019-02-03] MEDS ORDERED: NITR.4SL SL (12:58)
--- NOTE | 2019-02-03 15:00 | NUR ---
DISCHARGE INSTRUCTIONS PROVIDED. DAUGHTER AT BEDSIDE AND ALL QUESTIONS ANSWERED ABOUT NEW MEDICATIONS. IV REMOVED AND INTACT. PT TAKEN OUT BY WHEELCHAIR.
== END 2019-02-03 15:00 | disposition home or self-care (01) | DRG 247 ==
LOC: ER 08:12 → MEDS 15:07 → PCU 02-02 15:54
PROVIDERS: Internal Medicine Endocrinology, Diabetes & Metabolism; Internal Medicine Nephrology; Physician Assistant; ADMIT Student in an Organized Health Care Education/Training Program
PROC: B245ZZ4 Ultrasonography of Left Heart, Transesophageal (ICD-10-PCS; 2019-01-28)
PROC: 027035Z Dilation of Coronary Artery, One Artery with Two Drug-eluting Intraluminal Devices, Percutaneous Approach (ICD-10-PCS; principal; 2019-02-02)
PROC: B2111ZZ Fluoroscopy of Multiple Coronary Arteries using Low Osmolar Contrast (ICD-10-PCS; 2019-02-02)
DX: I21.4 Non-ST elevation (NSTEMI) myocardial infarction (principal); N17.9 Acute kidney failure, unspecified; E87.1 Hypo-osmolality and hyponatremia; I13.0 Hypertensive heart and chronic kidney disease with heart failure and stage 1 through stage 4 chronic kidney disease, or unspecified chronic kidney disease; I50.32 Chronic diastolic (congestive) heart failure; Z87.891 Personal history of nicotine dependence; Z95.0 Presence of cardiac pacemaker; Z90.11 Acquired absence of right breast and nipple; J44.9 Chronic obstructive pulmonary disease, unspecified; I49.5 Sick sinus syndrome; I25.2 Old myocardial infarction; I25.10 Atherosclerotic heart disease of native coronary artery without angina pectoris; I08.0 Rheumatic disorders of both mitral and aortic valves; Z85.3 Personal history of malignant neoplasm of breast; M81.0 Age-related osteoporosis without current pathological fracture; E78.00 Pure hypercholesterolemia, unspecified; E21.3 Hyperparathyroidism, unspecified; G47.33 Obstructive sleep apnea (adult) (pediatric); Z66 Do not resuscitate; M40.209 Unspecified kyphosis, site unspecified; Z99.81 Dependence on supplemental oxygen; E86.0 Dehydration; N18.3 Chronic kidney disease, stage 3 (moderate); E88.09 Other disorders of plasma-protein metabolism, not elsewhere classified; D63.1 Anemia in chronic kidney disease; L29.0 Pruritus ani; E86.9 Volume depletion, unspecified; E87.70 Fluid overload, unspecified; N26.1 Atrophy of kidney (terminal)
CPT/HCPCS: 36415; 71046; 76770; 80048; 80053; 80069; 82533; 83605; 83735; 83880; 83930; 84100; 84295; 84443; 84484; 84550; 85014; 85018; 85025; 85049; 85347; 85610; 85730; 87040; 93005; 93010; 93312; 93325; 93454; 94640; 94760; 96374; 97110; 97116; 97161; 97165; 97530; 99152; 99153; 99285-25; A9270-GY; C1725; C1769; C1874; C1887; C1894; C9113; C9600; J1644; J1650; J2250; J2405; J3010; J7030; Q9967

== ENCOUNTER → 2019-02-07 | Outpatient (CLI) | payer MEDICARE ==
[~2019-02-07] MED LIST changes: +Calcium + Vita1 EACH PO; +NITR.4SL SL; +TORSE20 PO
[2019-02-07 13:23] LABS: Microalbumin, Urine Quant. <5.000 mg/L (0.000-20.000)
== END | disposition home or self-care (01) ==
LOC: LAB 07:30 → LAB SHORT 07:30
PROVIDERS: Internal Medicine Nephrology
DX: N18.2 Chronic kidney disease, stage 2 (mild) (principal); D63.1 Anemia in chronic kidney disease; N25.81 Secondary hyperparathyroidism of renal origin; E55.9 Vitamin D deficiency, unspecified; E78.00 Pure hypercholesterolemia, unspecified; R76.9 Abnormal immunological finding in serum, unspecified; R94.5 Abnormal results of liver function studies; R94.6 Abnormal results of thyroid function studies; D51.8 Other vitamin B12 deficiency anemias; D52.8 Other folate deficiency anemias; D50.9 Iron deficiency anemia, unspecified
CPT/HCPCS: 81050; 82043; 82570; 84156

== ENCOUNTER 2019-05-19 13:35 | Emergency (ER) | payer MEDICARE ==
[~2019-05-19] VITALS: Ht 152.4 cm; Wt 81.6 kg
[2019-05-19 14:24] LABS: BASOPHILS PERCENT AUTO 1 % (0-2); EOSINOPHILS PERCENT AUTO 5 % (0-6); Hematocrit 34.8 % (33.0-51.0); Hemoglobin 10.5 g/dL (11.5-16.0); IMMATURE GRAN ABSOLUTE AUTO 0.03 K/mm3 (0.00-0.10); IMMATURE GRAN PERCENT AUTO 0 % (0-1); LYMPHOCYTES ABSOLUTE AUTO 0.94 K/mm3 (0.84-5.20); LYMPHOCYTES PERCENT AUTO 10 % (21-46); MONOCYTES ABSOLUTE AUTO 0.82 K/mm3 (0.16-1.47); MONOCYTES PERCENT AUTO 9 % (4-13); Mean Corpuscular HGB 26.4 pg (26.0-34.0); Mean Corpuscular HGB Conc 30.2 g/dL (31.5-36.5); Mean Corpuscular Volume 87 fL (80-100); Mean Platelet Volume 9.4 fL (9.1-12.4); NEUTROPHILS ABSOLUTE AUTO 7.26 K/mm3 (1.96-9.15); NEUTROPHILS PERCENT AUTO 75 % (41-73); Platelet Count 390 K/mm3 (150-400); RDW Coefficient Variation 16.7 % (11.7-14.2); RDW Standard Deviation 54.1 fL (35.1-46.3); Red Blood Cell Count 3.98 M/mm3 (3.80-5.20); White Blood Cell Count 9.65 K/mm3 (4.00-11.30)
[2019-05-19 14:43] LABS: Albumin, Blood 3.5 g/dL (3.4-5.0); Albumin/Globulin Ratio 0.9 (0.8-1.8); Bilirubin, Total 0.3 mg/dL (0.1-1.0); Bun/Creatinine Ratio 23.3 (12.0-20.0); Calcium, Blood 9.1 mg/dL (8.5-10.1); Creatinine, Blood 1.03 mg/dL (0.40-1.00); Potassium, Blood 4.1 mmol/L (3.5-5.5); Total Protein, Blood 7.5 g/dL (6.4-8.2); Troponin I 0.05 ng/mL (0.000-0.040)
== END 2019-05-19 16:05 | disposition home or self-care (01) ==
LOC: ER 13:35
PROVIDERS: Emergency Medicine
DX: R06.00 Dyspnea, unspecified (principal); Z88.1 Allergy status to other antibiotic agents; Z88.0 Allergy status to penicillin; Z88.2 Allergy status to sulfonamides; Z88.5 Allergy status to narcotic agent; Z88.8 Allergy status to other drugs, medicaments and biological substances; Z79.899 Other long term (current) drug therapy; Z79.82 Long term (current) use of aspirin; I25.2 Old myocardial infarction; Z87.891 Personal history of nicotine dependence
CPT/HCPCS: 36415; 71045; 80053; 83880; 84484; 85025; 93005; 93010; 99285-25

== ENCOUNTER → 2019-08-11 | Outpatient (CLI) | payer MEDICARE ==
[2019-08-12 13:57] LABS: Stool Occult Bld Immuno 1 Positive (NEGATIVE)
== END | disposition home or self-care (01) ==
LOC: OLS 13:30 → LAB SHORT 13:30
PROVIDERS: Internal Medicine Nephrology
DX: N18.4 Chronic kidney disease, stage 4 (severe) (principal); D63.1 Anemia in chronic kidney disease
CPT/HCPCS: 82274

== ENCOUNTER 2019-09-08 00:11 | Day surgery (SDC) | payer MEDICARE ==
--- NOTE | 2019-09-08 17:56 | NUR ---
AFTER TRANSFUSION PT GOT UP TO USE THE BATHROOM VIA WC AND C/O FEELING HOT AND SOB. REASSESSED LUNG SOUNDS WHICH WERE CLEAR AFTER A COUGH AND BIOX: 96-97 ON RA. PT USED HER RESCUE INHALER AND SAID SHE WAS READY TO GO HOME. THIS RN OFFERED TO CALL THE DOCTOR OR TAKE HER TO THE ER BUT SHE AND HER DAUGHTER DECLINED. PTS DAUGHTER STS THAT THIS HAPPENS AT HOME ALSO. BECAUSE VS WERE WITHIN NORMAL LIMITS, AND PT WAS CALMER AND HER DAUGHTER WOULD MONITOR HER, PT WAS DC'D HOME. PTS DAUGHTER VERBALIZED THAT SHE COULD CALL 911 OR TAKE HER TO THE ER IF SYMPTOMS WORSENED. PT IS SCHEDULED TO SEE DR. DREW TOMORROW.
== END 2019-09-08 18:00 | disposition home or self-care (01) ==
LOC: ATC 00:11
PROC: 30243N1 Transfusion of Nonautologous Red Blood Cells into Central Vein, Percutaneous Approach (ICD-10-PCS; principal; 2019-09-08)
DX: I12.9 Hypertensive chronic kidney disease with stage 1 through stage 4 chronic kidney disease, or unspecified chronic kidney disease (principal); N18.3 Chronic kidney disease, stage 3 (moderate); D63.1 Anemia in chronic kidney disease; N25.81 Secondary hyperparathyroidism of renal origin; Z79.899 Other long term (current) drug therapy; Z88.0 Allergy status to penicillin; Z88.2 Allergy status to sulfonamides; Z88.1 Allergy status to other antibiotic agents; Z88.5 Allergy status to narcotic agent; Z88.8 Allergy status to other drugs, medicaments and biological substances; Z79.51 Long term (current) use of inhaled steroids; Z79.02 Long term (current) use of antithrombotics/antiplatelets
CPT/HCPCS: 36415; 36430; 86850; 86900; 86901; 86923; J7050; P9016

== ENCOUNTER 2019-10-31 22:53 | Emergency (ER) | payer MEDICARE ==
[~2019-10-31] VITALS: Ht 152.4 cm; Wt 79.8 kg
== END 2019-11-01 02:17 | disposition home or self-care (01) ==
LOC: ER 22:53
DX: I83.892 Varicose veins of left lower extremity with other complications (principal); I25.2 Old myocardial infarction; D64.9 Anemia, unspecified; Z88.0 Allergy status to penicillin; Z88.1 Allergy status to other antibiotic agents; Z88.2 Allergy status to sulfonamides; Z88.5 Allergy status to narcotic agent; Z88.8 Allergy status to other drugs, medicaments and biological substances; Z79.82 Long term (current) use of aspirin; Z79.899 Other long term (current) drug therapy; Z87.891 Personal history of nicotine dependence
CPT/HCPCS: 99283

== ENCOUNTER 2019-12-18 02:17 | Emergency (ER) | payer MEDICARE ==
[~2019-12-18] VITALS: Ht 152.4 cm; Wt 79.4 kg
[2019-12-18] MEDS ORDERED: NITR100CA PO (02:28)
[2019-12-18] MEDS ORDERED: LIDO700A20 TOP (05:41)
[2019-12-18] MEDS ORDERED: ROXYBOND5 MG PO (05:41)
[2019-12-18] MEDS ORDERED: Roxicodone5 MG PO (05:43)
== END 2019-12-18 06:12 | disposition home or self-care (01) ==
LOC: ER 02:17
DX: M54.42 Lumbago with sciatica, left side (principal); I25.2 Old myocardial infarction; Z87.891 Personal history of nicotine dependence; Z88.0 Allergy status to penicillin; Z88.2 Allergy status to sulfonamides; Z79.899 Other long term (current) drug therapy
CPT/HCPCS: 99283

== ENCOUNTER 2020-03-13 07:37 | Inpatient (IN) | payer MEDICARE ==
[~2020-03-13] VITALS: Ht 170.2 cm; Wt 76.8 kg
[~2020-03-13 07:37] MED LIST changes: +LIDO700A20 TOP; +NITR100CA PO; +ROXYBOND5 MG PO; +Roxicodone5 MG PO
[2020-03-13 08:06] LABS: BASOPHILS PERCENT AUTO 1 % (0-2); EOSINOPHILS ABSOLUTE AUTO 0.48 K/mm3 (0.00-0.68); EOSINOPHILS PERCENT AUTO 6 % (0-6); Hematocrit 42.7 % (33.0-51.0); Hemoglobin 13.1 g/dL (11.5-16.0); IMMATURE GRAN ABSOLUTE AUTO 0.01 K/mm3 (0.00-0.10); IMMATURE GRAN PERCENT AUTO 0 % (0-1); LYMPHOCYTES ABSOLUTE AUTO 1.16 K/mm3 (0.84-5.20); LYMPHOCYTES PERCENT AUTO 14 % (21-46); MONOCYTES ABSOLUTE AUTO 0.67 K/mm3 (0.16-1.47); MONOCYTES PERCENT AUTO 8 % (4-13); Mean Corpuscular HGB 26.8 pg (26.0-34.0); Mean Corpuscular HGB Conc 30.7 g/dL (31.5-36.5); Mean Corpuscular Volume 87 fL (80-100); Mean Platelet Volume 10.3 fL (9.1-12.4); NEUTROPHILS ABSOLUTE AUTO 5.94 K/mm3 (1.96-9.15); NEUTROPHILS PERCENT AUTO 71 % (41-73); Platelet Count 340 K/mm3 (150-400); RDW Coefficient Variation 14.6 % (11.7-14.2); Red Blood Cell Count 4.89 M/mm3 (3.80-5.20); White Blood Cell Count 8.36 K/mm3 (4.00-11.30)
[2020-03-13 08:28] LABS: Albumin, Blood 3.6 g/dL (3.4-5.0); Albumin/Globulin Ratio 0.9 (0.8-1.8); Bilirubin, Total 0.5 mg/dL (0.1-1.0); Bun/Creatinine Ratio 30.5 (12.0-20.0); Calcium, Blood 9.1 mg/dL (8.5-10.1); Creatinine, Blood 1.05 mg/dL (0.40-1.00); Potassium, Blood 4.6 mmol/L (3.5-5.5); Total Protein, Blood 7.6 g/dL (6.4-8.2); Troponin I 0.058 ng/mL (0.000-0.040)
[2020-03-13 08:33] LABS: Base Excess Venous -1.4 mmol/L; Bicarbonate Venous 22.8 mmol/L (24.0-30.0); PCO2 Venous 47.7 mmHg (38-42); PO2 Venous 57.7 mmHg (38-42); pH Blood Venous 7.32 (7.34-7.37)
[2020-03-13 10:19] LABS: Source, Urine Catheter
[2020-03-13 10:21] LABS: Bilirubin, Urine Neg (Neg); Blood, Urine Neg (Neg); Glucose Qualitative, Urine Neg (Neg); Ketones, Urine Neg (Neg); Leukocyte Esterase, Urine 1+ (Neg); Nitrite, Urine Neg (Neg); Protein, Urine Neg (Neg); Specific Gravity, Urine 1.015 (1.003-1.022); Urobilinogen, Urine NORM (Normal)
[2020-03-13 10:34] LABS: Appearance, Urine Clear (Clear); Color, Urine Yellow (P-Yellow)
[2020-03-13 10:35] LABS: Bacteria Rare /hpf; Red Blood Cells, Urine Not Seen /hpf (0-2); Squamous Epithelial Cells Rare /hpf (Few); White Blood Cells, Urine 0-2 /hpf (0-5)
[2020-03-13] MEDS ORDERED: CYCL10 PO (12:48)
--- NOTE | 2020-03-13 17:44 | NUR ---
SHIFT SUMMARY PT ALERT AND ORIENTED. VS STABLE. O2 SATS REMAIN ABOVE 90% ON 3L NC. PT HAS BEEN OFF BIPAP SINCE ADMITTED TO UNIT. HR PACED. PT DENIES ANY PAIN. PT DENIES FEELING SOB. DAVEY PATENT AND DRAINING CLEAR YELLOW URINE. PT REPOSITIONING HERSELF IN BED. WILL CONTINUE TO MONITOR AND REPORT TO ONCOMING RN. CALL LIGHT IN REACH.
[2020-03-14 04:48] LABS: BASOPHILS ABSOLUTE AUTO 0.05 K/mm3 (0.00-0.23); BASOPHILS PERCENT AUTO 1 % (0-2); EOSINOPHILS ABSOLUTE AUTO 0.28 K/mm3 (0.00-0.68); EOSINOPHILS PERCENT AUTO 4 % (0-6); Hematocrit 38.2 % (33.0-51.0); Hemoglobin 11.8 g/dL (11.5-16.0); IMMATURE GRAN ABSOLUTE AUTO 0.02 K/mm3 (0.00-0.10); IMMATURE GRAN PERCENT AUTO 0 % (0-1); LYMPHOCYTES ABSOLUTE AUTO 1.34 K/mm3 (0.84-5.20); LYMPHOCYTES PERCENT AUTO 20 % (21-46); MONOCYTES ABSOLUTE AUTO 0.83 K/mm3 (0.16-1.47); MONOCYTES PERCENT AUTO 13 % (4-13); Mean Corpuscular HGB 26.6 pg (26.0-34.0); Mean Corpuscular HGB Conc 30.9 g/dL (31.5-36.5); Mean Corpuscular Volume 86 fL (80-100); Mean Platelet Volume 10.1 fL (9.1-12.4); NEUTROPHILS ABSOLUTE AUTO 4.08 K/mm3 (1.96-9.15); NEUTROPHILS PERCENT AUTO 62 % (41-73); Platelet Count 289 K/mm3 (150-400); RDW Coefficient Variation 14.6 % (11.7-14.2); RDW Standard Deviation 45.7 fL (35.1-46.3); Red Blood Cell Count 4.43 M/mm3 (3.80-5.20)
[2020-03-14 05:09] LABS: Albumin, Blood 3.3 g/dL (3.4-5.0); Albumin/Globulin Ratio 0.9 (0.8-1.8); Bilirubin, Total 0.7 mg/dL (0.1-1.0); Bun/Creatinine Ratio 29.8 (12.0-20.0); Calcium, Blood 9.1 mg/dL (8.5-10.1); Creatinine, Blood 1.21 mg/dL (0.40-1.00); Globulin, Blood 3.8 g/dL (2.2-4.0); Potassium, Blood 3.8 mmol/L (3.5-5.5); Total Protein, Blood 7.1 g/dL (6.4-8.2)
--- NOTE | 2020-03-14 06:18 | NUR ---
SHIFT SUMMARY PATIENT HAD DIFFICULTY INITIATING SLEEP DUE TO CRAMPING IN THE LOWER EXTREMITIES. PATIENT HAD LITTLE IMPROVEMENT WITH SCD'S. A ONE TIME DOSE OF VALIUM WAS GIVEN THAT REDUCED DISCOMFORT ENOUGH TO SLEEP. PATIENT HAS A BED ALARM ON. NO ACUTE CHANGES THROUGHOUT THE NIGHT. CALL LIGHT IN REACH.
--- NOTE | 2020-03-14 16:23 | NUR ---
PT REPORTS NO CHEST PAIN. PT CONTINUES TO HAVE PAIN IN BILATERAL LOWER LEGS. ONE NORCO PER EMR WAS GIVEN. PT REPORTS TO HAVE A DECREASE IN LEG PAIN AFTER RECIEVING THE NORCO. PT IS WEAK AND SOB DURING EXERTION AND MEAL TIMES. OXYGEN SATURATION IS MAINTAINED AT 3 L VIA NASAL CANULA. BLOOD PRESSURE IS STABLE, AND HR IS PACED IN THE 60'S. CALL LIGHT IS WITHIN REACH. WILL CONTINUE TO MONITOR.
--- NOTE | 2020-03-14 17:38 | NUR ---
SHIFT SUMMARY PT ALERT AND ORIENTED. VS STABLE. O2 SATS REMAIN ABOVE 90% ON 3L NC. PT REPORTS SOB IS IMPROVED THIS AFTERNOON. DAVEY PATENT AND DRAINING. PT ABLE TO REPOSITION HERSELF IN THE BED. PT ABLE TO AMBULATE TO BSC WITH SBA. ORDERS CHANGED TO MEDICAL STATUS. IV LEAKING AT THIS TIME. ATTEMPTING TO OBTAIN NEW IV ACCESS AT THIS TIME. PT TO BE TAKEN UP TO MEDICAL FLOOR BY BED.
--- NOTE | 2020-03-14 18:29 | NUR ---
SHIFT SUMMARY PT ARRIVED ON THE UNIT LATE THIS SHIFT. PT IN ROOM IN BED TRANSFERED IN. PT ALERT AND ORIENTED. PT COOPERATIVE WITH CARE. PT ORIENTED TO ROOM. PT DENIES DIFFICULTY BREATHING AT THIS TIME. PT SITTING UP IN BED. STATES NO NEEDS AT THIS TIME.
[2020-03-15 05:53] LABS: BASOPHILS ABSOLUTE AUTO 0.08 K/mm3 (0.00-0.23); BASOPHILS PERCENT AUTO 1 % (0-2); EOSINOPHILS ABSOLUTE AUTO 0.49 K/mm3 (0.00-0.68); EOSINOPHILS PERCENT AUTO 8 % (0-6); Hematocrit 36.9 % (33.0-51.0); Hemoglobin 11.7 g/dL (11.5-16.0); IMMATURE GRAN PERCENT AUTO 0 % (0-1); LYMPHOCYTES ABSOLUTE AUTO 1.03 K/mm3 (0.84-5.20); LYMPHOCYTES PERCENT AUTO 17 % (21-46); MONOCYTES ABSOLUTE AUTO 0.61 K/mm3 (0.16-1.47); MONOCYTES PERCENT AUTO 10 % (4-13); Mean Corpuscular HGB 27.2 pg (26.0-34.0); Mean Corpuscular HGB Conc 31.7 g/dL (31.5-36.5); Mean Corpuscular Volume 86 fL (80-100); Mean Platelet Volume 10.2 fL (9.1-12.4); NEUTROPHILS ABSOLUTE AUTO 3.79 K/mm3 (1.96-9.15); NEUTROPHILS PERCENT AUTO 63 % (41-73); Platelet Count 286 K/mm3 (150-400); RDW Coefficient Variation 14.6 % (11.7-14.2); RDW Standard Deviation 45.3 fL (35.1-46.3)
[2020-03-15 05:59] LABS: Albumin, Blood 3.2 g/dL (3.4-5.0); Anion Gap 8 mmol/L (6-16); Blood Urea Nitrogen 35 mg/dL (8-24); Bun/Creatinine Ratio 28.9 (12.0-20.0); CO2, Blood 29 mmol/L (21-32); Chloride, Blood 100 mmol/L (98-108); Creatinine, Blood 1.21 mg/dL (0.40-1.00); Glomerular Filtration Rate 45 (60-); Glucose, Blood 92 mg/dL (70-99); Magnesium, Blood 2.2 mg/dL (1.6-2.4); Phosphorus, Blood 3.3 mg/dL (2.5-4.9); Potassium, Blood 3.7 mmol/L (3.5-5.5); Sodium, Blood 137 mmol/L (136-145)
--- NOTE | 2020-03-15 06:39 | NUR ---
SHIFT SUMMARY NO ACUTE CHANGES THIS SHIFT. AOX4. VSS. DENIES N/V OR DYSPNEA. REPORTED PAIN FROM MUSCLE CRAMPS IN BLE LAST NIGHT & MEDICATED 1X W/FLEXERIL & 1X W/NORCO. SPO2 >90% ON 3L O2 @ NIGHT WHICH IS HER BASELINE FOR NIGHT. TELE 100% PACED HR 62. TAMICA IS PATENT & DRAINING. CALL LIGHT IN REACH.
[2020-03-15] MEDS ORDERED: ASPI81CH PO (12:19)
[2020-03-15] MEDS ORDERED: FURO20 PO (12:19)
--- NOTE | 2020-03-15 14:00 | NUR ---
DISCHARGE INSTRUCTIONS COMPLETED AND DISCUSSED WITH PT EXPRESSING UNDERSTANDING. SCRIPTS FAXED TO [facility]. INSTRUCTIONS SENT WITH PT FOR DAUGHTER TO GO OVER WELL. TO [place] VIA W/C WITH DAUGHTER THERE TO PIICK HER UP.
== END 2020-03-15 14:30 | disposition home or self-care (01) | DRG 292 ==
LOC: ER 07:37 → PCU 07:38 → MEDS 03-14 18:08
PROVIDERS: Emergency Medicine; Internal Medicine Gastroenterology; ADMIT Internal Medicine
DX: I50.33 Acute on chronic diastolic (congestive) heart failure (principal); I42.1 Obstructive hypertrophic cardiomyopathy; I11.0 Hypertensive heart disease with heart failure; I25.2 Old myocardial infarction; I25.10 Atherosclerotic heart disease of native coronary artery without angina pectoris; I49.5 Sick sinus syndrome; G47.33 Obstructive sleep apnea (adult) (pediatric); Z99.81 Dependence on supplemental oxygen; Z90.13 Acquired absence of bilateral breasts and nipples; Z87.891 Personal history of nicotine dependence; Z95.5 Presence of coronary angioplasty implant and graft; M81.0 Age-related osteoporosis without current pathological fracture; I27.20 Pulmonary hypertension, unspecified; I08.1 Rheumatic disorders of both mitral and tricuspid valves; Z79.01 Long term (current) use of anticoagulants
CPT/HCPCS: 36415; 51702; 71045; 80053; 80069; 81001; 82803; 83735; 83880; 84484; 85025; 87086; 93005; 93010; 93306; 94640; 94660; 94760; 94762; 96374; 96375; 99285-25; A9270; A9270-GY; J1644; J1650; J1940; J2405; J3360

== ENCOUNTER 2020-08-13 08:36 | Emergency (ER) | payer MEDICARE ==
[~2020-08-13] VITALS: Ht 152.4 cm; Wt 72.6 kg
[~2020-08-13 08:36] MED LIST changes: +CYCL10 PO
[2020-08-13] MEDS ORDERED: Calicum 500+D1 EACH (08:54)
[2020-08-13] MEDS ORDERED: FERSU300 PO (08:54)
[2020-08-13] MEDS ORDERED: SPIR25 PO (08:55)
[2020-08-13] MEDS ORDERED: FURO40 PO (08:55)
[2020-08-13] MEDS ORDERED: Norco 5-325 Ta1 EACH (08:56)
[2020-08-13] MEDS ORDERED: Lisinopril2.5 MG PO (08:56)
[2020-08-13] MEDS ORDERED: CARV6.25 PO (08:56)
[2020-08-13] MEDS ORDERED: CLOP75 PO (08:56)
[2020-08-13] MEDS ORDERED: OMEP20ER PO (08:56)
[2020-08-13] MEDS ORDERED: CYCL10 PO (08:56)
[2020-08-13] MEDS ORDERED: ALBU2.5V5 (08:57)
[2020-08-13] MEDS ORDERED: ALBU3IS (08:57)
[2020-08-13 09:35] LABS: BASOPHILS ABSOLUTE AUTO 0.09 K/mm3 (0.00-0.23); BASOPHILS PERCENT AUTO 1 % (0-2); EOSINOPHILS PERCENT AUTO 4 % (0-6); Hematocrit 38.8 % (33.0-51.0); Hemoglobin 12.1 g/dL (11.5-16.0); IMMATURE GRAN ABSOLUTE AUTO 0.03 K/mm3 (0.00-0.10); IMMATURE GRAN PERCENT AUTO 0 % (0-1); LYMPHOCYTES ABSOLUTE AUTO 0.67 K/mm3 (0.84-5.20); LYMPHOCYTES PERCENT AUTO 8 % (21-46); MONOCYTES ABSOLUTE AUTO 0.55 K/mm3 (0.16-1.47); MONOCYTES PERCENT AUTO 7 % (4-13); Mean Corpuscular HGB 27.3 pg (26.0-34.0); Mean Corpuscular HGB Conc 31.2 g/dL (31.5-36.5); Mean Corpuscular Volume 87 fL (80-100); Mean Platelet Volume 9.7 fL (9.1-12.4); NEUTROPHILS ABSOLUTE AUTO 6.63 K/mm3 (1.96-9.15); NEUTROPHILS PERCENT AUTO 80 % (41-73); Platelet Count 330 K/mm3 (150-400); RDW Coefficient Variation 15.4 % (11.7-14.2); RDW Standard Deviation 49.2 fL (35.1-46.3); Red Blood Cell Count 4.44 M/mm3 (3.80-5.20); White Blood Cell Count 8.27 K/mm3 (4.00-11.30)
[2020-08-13 09:57] LABS: Troponin I 0.098 ng/mL (0.000-0.040)
[2020-08-13 09:59] LABS: Albumin, Blood 3.6 g/dL (3.4-5.0); Albumin/Globulin Ratio 0.9 (0.8-1.8); Bilirubin, Total 0.6 mg/dL (0.1-1.0); Bun/Creatinine Ratio 35.2 (12.0-20.0); Calcium, Blood 9.5 mg/dL (8.5-10.1); Creatinine, Blood 1.25 mg/dL (0.40-1.00); Globulin, Blood 4.2 g/dL (2.2-4.0); Potassium, Blood 4.5 mmol/L (3.5-5.5); Total Protein, Blood 7.8 g/dL (6.4-8.2)
== END 2020-08-13 11:00 | disposition home or self-care (01) ==
LOC: ER 08:36
PROVIDERS: Physician Assistant
DX: J44.1 Chronic obstructive pulmonary disease with (acute) exacerbation (principal); I25.2 Old myocardial infarction; I25.10 Atherosclerotic heart disease of native coronary artery without angina pectoris; E78.00 Pure hypercholesterolemia, unspecified; E03.9 Hypothyroidism, unspecified; I11.0 Hypertensive heart disease with heart failure; I50.9 Heart failure, unspecified; Z79.02 Long term (current) use of antithrombotics/antiplatelets; Z79.899 Other long term (current) drug therapy; Z88.1 Allergy status to other antibiotic agents; Z88.0 Allergy status to penicillin; Z88.2 Allergy status to sulfonamides; Z88.5 Allergy status to narcotic agent; Z88.8 Allergy status to other drugs, medicaments and biological substances; Z95.0 Presence of cardiac pacemaker; Z95.5 Presence of coronary angioplasty implant and graft; Z87.891 Personal history of nicotine dependence
CPT/HCPCS: 36415; 71045; 80053; 83880; 84484; 85025; 93005; 93010; 94644; 96374; 99285-25; J2930

== ENCOUNTER 2021-01-08 08:38 | Emergency (ER) | payer MEDICARE, OTHER ==
[~2021-01-08] VITALS: Ht 152.4 cm; Wt 71.7 kg
[~2021-01-08 08:38] MED LIST changes: +ALBU2.5V5; +ALBU3IS; +CARV3.125 PO; +Calicum 500+D1 EACH PO; +FERSU300 PO; +FURO40 PO; +Norco 5-325 Ta1 EACH
[2021-01-08 09:19] LABS: BASOPHILS ABSOLUTE AUTO 0.08 K/mm3 (0.00-0.23); BASOPHILS PERCENT AUTO 1 % (0-2); EOSINOPHILS ABSOLUTE AUTO 0.24 K/mm3 (0.00-0.68); EOSINOPHILS PERCENT AUTO 4 % (0-6); Hematocrit 34.2 % (33.0-51.0); Hemoglobin 10.6 g/dL (11.5-16.0); IMMATURE GRAN ABSOLUTE AUTO 0.02 K/mm3 (0.00-0.10); IMMATURE GRAN PERCENT AUTO 0 % (0-1); LYMPHOCYTES ABSOLUTE AUTO 0.58 K/mm3 (0.84-5.20); LYMPHOCYTES PERCENT AUTO 9 % (21-46); MONOCYTES ABSOLUTE AUTO 0.52 K/mm3 (0.16-1.47); MONOCYTES PERCENT AUTO 8 % (4-13); Mean Corpuscular HGB 29.8 pg (26.0-34.0); Mean Corpuscular Volume 96 fL (80-100); NEUTROPHILS ABSOLUTE AUTO 5.42 K/mm3 (1.96-9.15); NEUTROPHILS PERCENT AUTO 79 % (41-73); RDW Coefficient Variation 17.9 % (11.7-14.2); RDW Standard Deviation 63.3 fL (35.1-46.3); Red Blood Cell Count 3.56 M/mm3 (3.80-5.20); White Blood Cell Count 6.86 K/mm3 (4.00-11.30)
[2021-01-08 09:30] LABS: Mean Platelet Volume 9.6 fL (9.1-12.4); Platelet Count 361 K/mm3 (150-400)
[2021-01-08 09:42] LABS: Albumin, Blood 3.4 g/dL (3.4-5.0); Albumin/Globulin Ratio 0.8 (0.8-1.8); Bilirubin, Total 0.5 mg/dL (0.1-1.0); Bun/Creatinine Ratio 34.3 (12.0-20.0); Calcium, Blood 8.9 mg/dL (8.5-10.1); Creatinine, Blood 1.08 mg/dL (0.40-1.00); Potassium, Blood 5.6 mmol/L (3.5-5.5); Total Protein, Blood 7.4 g/dL (6.4-8.2)
[2021-01-08] MEDS ORDERED: Prednisone20 MG PO (11:12)
== END 2021-01-08 11:58 | disposition home or self-care (01) ==
LOC: ER 08:38
PROVIDERS: Emergency Medicine
DX: J44.1 Chronic obstructive pulmonary disease with (acute) exacerbation (principal); Z79.02 Long term (current) use of antithrombotics/antiplatelets; Z79.899 Other long term (current) drug therapy
CPT/HCPCS: 71045; 80053; 83880; 84484; 85025; 93005; 93010; 99285-25

== ENCOUNTER 2021-02-04 06:44 | Inpatient (IN) | payer MEDICARE ==
[~2021-02-04] VITALS: Ht 167.6 cm; Wt 72.6 kg
[~2021-02-04 06:44] MED LIST changes: -CARV3.125 PO; +Prednisone20 MG PO
[2021-02-04 07:22] LABS: BASOPHILS ABSOLUTE AUTO 0.08 K/mm3 (0.00-0.23); BASOPHILS PERCENT AUTO 1 % (0-2); EOSINOPHILS ABSOLUTE AUTO 0.32 K/mm3 (0.00-0.68); EOSINOPHILS PERCENT AUTO 4 % (0-6); Hematocrit 40.3 % (33.0-51.0); Hemoglobin 12.3 g/dL (11.5-16.0); IMMATURE GRAN ABSOLUTE AUTO 0.03 K/mm3 (0.00-0.10); IMMATURE GRAN PERCENT AUTO 0 % (0-1); LYMPHOCYTES ABSOLUTE AUTO 0.88 K/mm3 (0.84-5.20); LYMPHOCYTES PERCENT AUTO 11 % (21-46); MONOCYTES ABSOLUTE AUTO 0.71 K/mm3 (0.16-1.47); MONOCYTES PERCENT AUTO 9 % (4-13); Mean Corpuscular HGB 28.7 pg (26.0-34.0); Mean Corpuscular HGB Conc 30.5 g/dL (31.5-36.5); Mean Corpuscular Volume 94 fL (80-100); Mean Platelet Volume 9.8 fL (9.1-12.4); NEUTROPHILS ABSOLUTE AUTO 5.89 K/mm3 (1.96-9.15); NEUTROPHILS PERCENT AUTO 75 % (41-73); Platelet Count 359 K/mm3 (150-400); RDW Coefficient Variation 13.4 % (11.7-14.2); RDW Standard Deviation 46.8 fL (35.1-46.3); Red Blood Cell Count 4.28 M/mm3 (3.80-5.20); White Blood Cell Count 7.91 K/mm3 (4.00-11.30)
[2021-02-04 07:36] LABS: Albumin, Blood 3.7 g/dL (3.4-5.0); Bilirubin, Total 0.4 mg/dL (0.1-1.0); Bun/Creatinine Ratio 30.5 (12.0-20.0); Calcium, Blood 9.1 mg/dL (8.5-10.1); Creatinine, Blood 1.28 mg/dL (0.40-1.00); Globulin, Blood 3.6 g/dL (2.2-4.0); Potassium, Blood 4.4 mmol/L (3.5-5.5); Total Protein, Blood 7.3 g/dL (6.4-8.2); Troponin I 0.029 ng/mL (0.000-0.040)
--- NOTE | 2021-02-04 18:01 | NUR ---
SHIFT SUMMARY. 1036 PT ADMITTED TO MEDICAL FLOOR VIA [facility]. SLIDE TRANSFERED TO BED FROM [facility] WITH THREE STAFF. PT REPORTS MILD SOB, ALTHOUGH IT HAS IMPROVED GREATLY SINCE BEFORE ER ADMIT AND INTERVENTIONS PROVIDED THERE. LUNGS CLEAR ALTHOUGH DIM IN THE BASES. ON 2L O2 NC. DAUGHTER AT BEDSIDE THIS AFTERNOON, ASSISTING THE PT TO THE BSC WITH FWW. PT DENIES PAIN, N/V. DR. WEEKS IN TO SEE PT THIS AFTERNOON. NO OTHER CHANGES OR CONCERNS.
--- NOTE | 2021-02-04 23:57 | NUR ---
HOSPITALIST DR AYON INFORMED PATIENT [facility] ONLY LIST ZOFRAN AND LOVENOX. DOES NOT HAVE HOME MEDICATIONS POPULATED AT THIS TIME. FLEXERIL 10 MG PRN BEDTIME ORDERED BY DR AYON PER PATIENT REQUEST.
--- NOTE | 2021-02-05 00:50 | NUR ---
LAB BLOOD CULTURE: GRAM POSITIVE IN CHAINS X TWO SETS. HOSPITALIST DR AYON NOTIFIED AND REPORTS TO CALL PHARMACY ABOUT PATIENT ALLERGIES AND HAVE PHARMACY CALL HER BACK. COMPLETED.
--- NOTE | 2021-02-05 02:06 | NUR ---
IV VANCO INFUSING X ONE. PATIENT TOLERATING AT THIS TIME.
--- NOTE | 2021-02-05 03:24 | NUR ---
SHIFT SUMMARY PATIENT HAD GRAM POSITIVE COCCI IN CHAINS X TWO SETS. HOSPITAL[address] DR AYON NOTIFIED AND ORDERED IV VANCO PER PHARMACY. PATIENT HAS LIST OF KNOWN ALLERGIES. TOLERATED IV VANCO X ONE. DR AYON ALSO NOTIFED PATIENT DOES NOT HAVE ANY HOME MEDICATIONS IN [facility]. DAY SHIFT ADMIT. AXOX 3 AND SBA TO BSC. PIV REMAINS INTACT. ON 3L O2 NC. DENIES SOB AND N/V. FLEXERIL 10 MG ORDERED FOR MUSCLE SPASMS. VSS/AFEBRILE. CALL LIGHT IN REACH. BED IN LOWEST POSITION. WILL CONTINUE TO MONITOR UNTIL DAY SHIFT NURSE ASSUMES CARE.
[2021-02-05 05:06] LABS: BASOPHILS ABSOLUTE AUTO 0.02 K/mm3 (0.00-0.23); BASOPHILS PERCENT AUTO 0 % (0-2); EOSINOPHILS PERCENT AUTO 0 % (0-6); Hematocrit 44.1 % (33.0-51.0); Hemoglobin 13.7 g/dL (11.5-16.0); IMMATURE GRAN ABSOLUTE AUTO 0.03 K/mm3 (0.00-0.10); IMMATURE GRAN PERCENT AUTO 0 % (0-1); LYMPHOCYTES ABSOLUTE AUTO 0.96 K/mm3 (0.84-5.20); LYMPHOCYTES PERCENT AUTO 9 % (21-46); MONOCYTES PERCENT AUTO 8 % (4-13); Mean Corpuscular HGB 28.5 pg (26.0-34.0); Mean Corpuscular HGB Conc 31.1 g/dL (31.5-36.5); Mean Corpuscular Volume 92 fL (80-100); Mean Platelet Volume 9.7 fL (9.1-12.4); NEUTROPHILS ABSOLUTE AUTO 8.72 K/mm3 (1.96-9.15); NEUTROPHILS PERCENT AUTO 83 % (41-73); Platelet Count 431 K/mm3 (150-400); RDW Coefficient Variation 13.2 % (11.7-14.2); RDW Standard Deviation 44.6 fL (35.1-46.3); White Blood Cell Count 10.53 K/mm3 (4.00-11.30)
--- NOTE | 2021-02-05 05:14 | NUR ---
HOSPITALIST DR AYON ORDER TO INITIATE PROTOCOL: BD/COPD FOR BREATHING TX PER RT.
[2021-02-05 05:25] LABS: Bun/Creatinine Ratio 34.5 (12.0-20.0); Calcium, Blood 9.8 mg/dL (8.5-10.1); Creatinine, Blood 1.19 mg/dL (0.40-1.00); Magnesium, Blood 2.3 mg/dL (1.6-2.4); Potassium, Blood 5.2 mmol/L (3.5-5.5)
--- NOTE | 2021-02-05 16:49 | NUR ---
Shift summary Patient up in chair for most of shift. VSS. Patient received scheduled breathing tx. Family at bedside offering support. Patient has been confused at times today. Echo ordered today by MD. Call light within patient reach.
[2021-02-05 21:27] LABS: Vancomycin, Random 13.7 ug/mL
--- NOTE | 2021-02-06 05:56 | NUR ---
SHIFT SUMMARY- PT. A&O TO SELF AND FAMILY. CONFUSED DURING THE NIGHT BUT EASILY REDIRECTABLE. HAD COMPLAINT OF BACK PAIN. MEDICATED PER EMAR WITH GOOD EFFECT. PT. SLEPT T/O THE NIGHT, NO APPARENT DISTRESS NOTED. DENIED ANY FURTHER NEEDS, VSS. CALL LIGHT WITHIN REACH, SIDE RAILS UPX2, AND BED ALARM ON FOR SAFETY. WILL CONT TO MONITOR.
--- NOTE | 2021-02-06 16:03 | NUR ---
SHIFT SUMMARY PATIENT MEDICATED FOR PAIN X1, DENIES NAUSEA AND SHORTNESS OF BREATHE. EATING AND DRINKING WELL. SWITCHED TO PO ANTIBIOTICS. UP TO BATHROOM WITH 1 ASSIST. DAUGHTER VISITED IN AFTERNOON. PATIENT IS STILL FORGETFUL. PLEASENT AND COOPERATIVE WITH CARE.
--- NOTE | 2021-02-06 16:42 | NUR ---
ADMIT: 02/04/21 DISCHARGE: DX: Pneumonia/COPD CC: kwilcox ADMIT: 03/13/20 DISCHARGE: 03/15/20 ADMIT: 01/27/2019 DISCHARGE: 02/03/19 EVANGELINA CALL: RESIDENCE: HOME, DAUGHTER ASSISTS WITH HER CARE CAREGIVER: Heena Veronica, Child, DX: Acute hypoxemic resp. failure, NSTEMI, CHF, see list DME: O2 and supplies, wheeled walker CCM: Referral- 2019 HOME HEALTH: [facility]- 2018 SUMMARY: Admit: 02/04/21 02/06/21- Per chart review with Dr. Patrick, pt still on IV antibiotics for bacteraemia, waiting for final blood cultures. Pt could potentially be d/c either Fri or . -greciaw 02/05/21- (late entry)- pt's status was changed from OBS to inpatient by Dr. Patrick. Per chart review with Dr. Patrick, pt's cultures came back positive and pt was started on IV antibiotics. Echo was ordered and PT services. Pt is currently on 3L of O2. Pt saw pt and states that pt will need help with transportation and home management. They feel that pt is at or near baseline. They are recommending part-time caregiver and home health. -kjw
[2021-02-06 22:33] LABS: Vancomycin, Random 16.5 ug/mL
--- NOTE | 2021-02-07 04:14 | NUR ---
SHIFT SUMMARY NO ACUTE CHANGES TO REPORT THIS SHIFT. PT HAS RESTED MOST OF THE NIGHT AND HAS DENIED NEEDS. COMPLIANT WITH FLUID RESTRICTIONS. IV ANTIBIOTICS AND PO ANTIBIOTICS ORDERED. VITALS STABLE. ASSESSMENT REMAINS UNCHANGED. VITALS STABLE. BED IN LOWEST POSITION, CALL LIGHT WITHIN REACH.
[2021-02-07 05:20] LABS: BASOPHILS ABSOLUTE AUTO 0.08 K/mm3 (0.00-0.23); BASOPHILS PERCENT AUTO 1 % (0-2); EOSINOPHILS ABSOLUTE AUTO 0.36 K/mm3 (0.00-0.68); EOSINOPHILS PERCENT AUTO 5 % (0-6); Hematocrit 43.1 % (33.0-51.0); Hemoglobin 13.4 g/dL (11.5-16.0); IMMATURE GRAN ABSOLUTE AUTO 0.01 K/mm3 (0.00-0.10); IMMATURE GRAN PERCENT AUTO 0 % (0-1); LYMPHOCYTES ABSOLUTE AUTO 1.12 K/mm3 (0.84-5.20); LYMPHOCYTES PERCENT AUTO 17 % (21-46); MONOCYTES ABSOLUTE AUTO 0.97 K/mm3 (0.16-1.47); MONOCYTES PERCENT AUTO 15 % (4-13); Mean Corpuscular HGB 28.3 pg (26.0-34.0); Mean Corpuscular HGB Conc 31.1 g/dL (31.5-36.5); Mean Corpuscular Volume 91 fL (80-100); NEUTROPHILS ABSOLUTE AUTO 4.14 K/mm3 (1.96-9.15); NEUTROPHILS PERCENT AUTO 62 % (41-73); RDW Coefficient Variation 13.2 % (11.7-14.2); RDW Standard Deviation 44.3 fL (35.1-46.3); Red Blood Cell Count 4.74 M/mm3 (3.80-5.20); White Blood Cell Count 6.68 K/mm3 (4.00-11.30)
[2021-02-07 05:32] LABS: Bun/Creatinine Ratio 35.2 (12.0-20.0); Creatinine, Blood 1.28 mg/dL (0.40-1.00); Potassium, Blood 4.1 mmol/L (3.5-5.5)
[2021-02-07 05:46] LABS: Mean Platelet Volume 9.9 fL (9.1-12.4)
[2021-02-07 06:13] LABS: Platelet Count 275 K/mm3 (150-400)
[2021-02-07] MEDS ORDERED: CEFP200 PO (12:54)
--- NOTE | 2021-02-07 14:40 | NUR ---
DISCHARGE DISCHARGE MEDICATIONS AND INSTRUCTIONS EXPLAINED TO PATIENT AND PATIENT'S DAUGHTER. THEY STATED UNDERSTANDING. [facility] TO CONTACT FAMILY AT HOME TO SCHEDULE FOLLOW UP. IV REMOVED WITHOUT ISSUE. BELONGINGS WITH PATIENT. PATIENT TANSFERED TO PRIVATE VEHICLE VIA WHEELCHAIR.
--- NOTE | 2021-02-07 14:41 | NUR ---
02/07/21- per chart review with Dr. Patrick, pt is stable to d/c home. Met with pt and she would like us to call her daughter for follow up call. Her daughter will be the one to come get her to take her home. Her pharmacy is [facility] in [place]. Pt states that her daughter comes and stay with her through the night and if she needs anything, her daughter will come right away. Pt doesn't have an DME needs, there are no stairs in her home and she has no concerns about going home. Pt acknowledge she will need to schedule f/u appt. -harjit
== END 2021-02-07 14:35 | disposition home or self-care (01) | DRG 292 ==
LOC: ER 06:44 → MEDS 06:45
PROVIDERS: Emergency Medicine; Family Medicine; Hospitalist; ADMIT Internal Medicine
DX: I13.0 Hypertensive heart and chronic kidney disease with heart failure and stage 1 through stage 4 chronic kidney disease, or unspecified chronic kidney disease (principal); J44.1 Chronic obstructive pulmonary disease with (acute) exacerbation; J96.10 Chronic respiratory failure, unspecified whether with hypoxia or hypercapnia; R78.81 Bacteremia; I50.9 Heart failure, unspecified; Z66 Do not resuscitate; E78.5 Hyperlipidemia, unspecified; I05.0 Rheumatic mitral stenosis; N18.30 Chronic kidney disease, stage 3 unspecified; M81.0 Age-related osteoporosis without current pathological fracture; M19.90 Unspecified osteoarthritis, unspecified site; B95.4 Other streptococcus as the cause of diseases classified elsewhere; I25.10 Atherosclerotic heart disease of native coronary artery without angina pectoris; I27.20 Pulmonary hypertension, unspecified; I42.1 Obstructive hypertrophic cardiomyopathy; Z87.891 Personal history of nicotine dependence; I25.2 Old myocardial infarction; Z95.0 Presence of cardiac pacemaker; Z98.890 Other specified postprocedural states; Z90.49 Acquired absence of other specified parts of digestive tract; Z90.13 Acquired absence of bilateral breasts and nipples; Z88.0 Allergy status to penicillin; Z88.2 Allergy status to sulfonamides; Z88.1 Allergy status to other antibiotic agents; Z88.5 Allergy status to narcotic agent; Z88.8 Allergy status to other drugs, medicaments and biological substances; Z79.02 Long term (current) use of antithrombotics/antiplatelets; Z79.899 Other long term (current) drug therapy; Z90.89 Acquired absence of other organs
CPT/HCPCS: 36415; 71045; 80048; 80053; 80202; 83605; 83735; 83880; 84145; 84484; 85025; 85651; 86140; 87040; 87184; 93005; 93010; 93306; 94640; 94667; 94760; 96365; 96375; 96376; 97116; 97162; 99285-25; A9270; A9270-GY; G0378; J0456; J1650; J1940; J3010; J3370; J7050

== ENCOUNTER 2021-03-16 03:30 | Inpatient (IN) | payer MEDICARE ==
[~2021-03-16] VITALS: Ht 162.6 cm; Wt 68.0 kg
[~2021-03-16 03:30] MED LIST changes: +CARV3.125 PO; +CEFP200 PO
[2021-03-16 03:57] LABS: BASOPHILS ABSOLUTE AUTO 0.13 K/mm3 (0.00-0.23); BASOPHILS PERCENT AUTO 1 % (0-2); EOSINOPHILS ABSOLUTE AUTO 0.51 K/mm3 (0.00-0.68); EOSINOPHILS PERCENT AUTO 6 % (0-6); Hematocrit 44.7 % (33.0-51.0); Hemoglobin 13.7 g/dL (11.5-16.0); IMMATURE GRAN ABSOLUTE AUTO 0.03 K/mm3 (0.00-0.10); IMMATURE GRAN PERCENT AUTO 0 % (0-1); LYMPHOCYTES ABSOLUTE AUTO 2.04 K/mm3 (0.84-5.20); LYMPHOCYTES PERCENT AUTO 22 % (21-46); MONOCYTES ABSOLUTE AUTO 0.78 K/mm3 (0.16-1.47); MONOCYTES PERCENT AUTO 8 % (4-13); Mean Corpuscular HGB Conc 30.6 g/dL (31.5-36.5); Mean Corpuscular Volume 91 fL (80-100); NEUTROPHILS ABSOLUTE AUTO 5.84 K/mm3 (1.96-9.15); NEUTROPHILS PERCENT AUTO 63 % (41-73); Platelet Count 376 K/mm3 (150-400); RDW Coefficient Variation 13.1 % (11.7-14.2); RDW Standard Deviation 44.1 fL (35.1-46.3); White Blood Cell Count 9.33 K/mm3 (4.00-11.30)
[2021-03-16 04:01] LABS: PO2 Arterial 103 mmHg (80-100); pH Blood Arterial 7.29 (7.35-7.45)
[2021-03-16 04:16] LABS: Albumin, Blood 3.7 g/dL (3.4-5.0); Albumin/Globulin Ratio 0.9 (0.8-1.8); Bilirubin, Total 0.4 mg/dL (0.1-1.0); Bun/Creatinine Ratio 26.9 (12.0-20.0); Calcium, Blood 9.8 mg/dL (8.5-10.1); Creatinine, Blood 1.34 mg/dL (0.40-1.00); Globulin, Blood 4.3 g/dL (2.2-4.0); Potassium, Blood 4.1 mmol/L (3.5-5.5); Troponin I 0.03 ng/mL (0.000-0.040)
--- NOTE | 2021-03-16 07:22 | NUR ---
SHIFT SUMMARY PATIENT ARRIVED TO ICU RM 3 @ 05:50. ABLE TO COMPLETE MEDICAL HISTORY, ADMISSION QUESTIONAIRE WITH HELP OF DAUGHTER. PT ARRIVES ONBIPAP 14/8, 35%, ON DOPAMINE @ 10 MCG/KG/MIN. PER ED STAFF, GOAL IS TO REACH SBP OF 120, THEN START NITRO TO HELP WITH OFFLOADING FLUIDS. PT ALERT, ORIENTED, VERY DIFFICULT TO SPEAK THRU BIPAP, ENCOURAGED TO REST AT THIS TIME. NO C/O PAIN. ASSESSMENT IS CHARTED. VSS.
--- NOTE | 2021-03-16 07:29 | NUR ---
CARE ASSUMED 0700 Pt A/O to location, able to follow directions, and denies pain at this time. Dopamine GTT 10 mcg/kg/min, MAP > 60. Current bP 97/51, MAP 75. On Bipap 02/06, FIO 35%, spo2 > 90%. HR 60's. Occasional PVC's and paced at times. Pt sleeping but easily awakens. Daughter at bedside. All questions answered.
--- NOTE | 2021-03-16 10:30 | NUR ---
Provider call - Dr. Rohith Newberry called to update on pt status. New orders recieved, Dr. Lamas consulted along with cardiology. Provider would like Resp PCR panel as well.
--- NOTE | 2021-03-16 10:45 | NUR ---
Provider visit- Dr. Adams Lamas would like Dopamine titerated to keep MAP > 55 ok with low SBP.
--- NOTE | 2021-03-16 11:30 | NUR ---
Update- Dr. Newberry visit Provider in to see patient. Dr. Newberry would like us to wait on calling cardiology for consult. Provider will speak to daughter, first Heena. Pt placed on NC 5 L, for BIPAP break and lunch. Dopamine GTT 2.5 MCG/KG/MIN. Pt continues to be A/O x 4 and calm/cooperative. Lung sounds- crackles T/O. Able to help with turns but has overall weakness. Denies pain at this time.
[2021-03-16 11:59] LABS: Adenovirus Not Detected (NOT DETECT); Coronavirus 229E Not Detected (NOT DETECT); Coronavirus HKU1 Not Detected (NOT DETECT); Coronavirus NL63 Not Detected (NOT DETECT); Coronavirus OC43 Not Detected (NOT DETECT); Human Metapneumovirus Not Detected (NOT DETECT); Human Rhinovirus/Enterovirus Not Detected (NOT DETECT); Influenza A/2009-H1 Not Detected (NOT DETECT); Influenza A/H1 Not Detected (NOT DETECT); Influenza A/H3 Not Detected (NOT DETECT); SARS-Cov-2 (COVID-19), BioFire Not Detected (NOT DETECT)
[2021-03-16 12:00] LABS: Bordetella pertussis Not Detected (NOT DETECT); Chlamydophila pneumoniae Not Detected (NOT DETECT); Influenza B Not Detected (NOT DETECT); Mycoplasma pneumoniae Not Detected (NOT DETECT); Parainfluenza Virus 1 Not Detected (NOT DETECT); Parainfluenza Virus 2 Not Detected (NOT DETECT); Parainfluenza Virus 3 Not Detected (NOT DETECT); Parainfluenza Virus 4 Not Detected (NOT DETECT); Respiratory Syncytial Virus Not Detected (NOT DETECT)
--- NOTE | 2021-03-16 14:27 | NUR ---
Echocardiogram performed by Avani Shah under my supervision.
--- NOTE | 2021-03-16 15:57 | NUR ---
Briefly had supportive visit with pt this morning. Dottie in this afternoon. We met she advised me she spoke with physician and expected to hear from me. We gently reviewed how the patient has been doing at home. Daughter states pt is more short of breath and complaining of heartburn. She is truggling more with mobility. Pt was on bipapa but able to contribute to conversation. We reviewed her diagnosis and discussed levels of care. We discussed symptom and pt risk for extrodinary suffering due to air hunger. Pt and daughter expressed oncern of how that was getting worse. Neither of them had experinced hospice care. Discussed a natural progression of life with support from a team and symptom management and quality of life at home with family. They were both very responsive to this. Advised I would give them madalyn to discuss and think about their wishes. Noreen forced that it is a decision barbara shourl be comprehensive to their mind body spirit and anna not just illness. They will discuss as a family.
--- NOTE | 2021-03-16 17:32 | NUR ---
Shift Summary Pt A/O X 4. Either on Bipap 02/06, FIO2 35% or on 5 L NC, SPO2 > 90%, crackles in bases. Daughter at bedside, updated on pt care being provided. Dr. Newberry in to see pt around 1645. Pt sitting in bed currently eating dinner with minimal assistance. Pt tolerated using bedside commode well, frequent urination and two loose brown stool. Dopamine remains off, MAP > 55. VSS.
--- NOTE | 2021-03-16 18:00 | NUR ---
Provider visit- Dr. Lamas/ PCU status-[id number] Lamas pt can be changed to PCU status. Charge nurse made aware. Pt and daughter made aware. Pt remains on Bipap 02/06, FIO2 35%. VSS. NSR.
--- NOTE | 2021-03-16 19:40 | NUR ---
PT AWAKE, ALERT AND ORIENTED. PT DENIES ANY HEADACHE, CHEST PAIN, NAUSEA, NUMBNESS OR TINGLING, PAIN OR DISCOMFORT. REMOVED BIPAP FOR ORAL CARE, AND FOR PO INTAKE. 5L O2 PLACED ON VIA NC DURING THIS BIPAP BREAK. PT REPORTS SHE USUALLY WEARS 3L O2 NC AT NOC AT HOME. SATS WNL. PT DENIES ANY URINARY DISCOMFORT, AND REPORTS HAVING 2 LOOSE STOOLS TODAY. PT IS ON AN ADA DIET, WITH AC/HS CBG'S. CALL LIGHT WITHIN REACH. BED IN LOW POSITION. FLUIDS AT BEDSIDE.
--- NOTE | 2021-03-17 03:13 | NUR ---
REPORT GIVEN TO DELFINA RN MEDICAL FLOOR. CARO, NURSING SUPV REQUESTED PT REMAIN HERE FOR 1 HOUR WITH CHANGE TO V30 BIPAP FROM V60 BIPAP - TO MONITOR OXYGEN SATURATIONS. SATS WNL DURING BIPAP BREAKS WITH 5L O2 VIA NC AND WITH V60 BIPAP ON. SELVIN RT CHANGED PT TO V30 SERIES AT 0315 - WILL CONTINUE TO MONITOR OXYGEN FOR 1 HOUR PER REQUEST OF NURSING SUPV. NO ACUTE CHANGES THIS SHIFT. WILL CONTINUE TO MONITOR UNTIL TRANSFER TO ROOM 342.
--- NOTE | 2021-03-17 03:35 | NUR ---
PT UP TO BSC - LARGE LIQUID BM OUT, MIXED WITH URINE - PT REPORTS WHEN SHE HAS "SOUP, SOMETIMES THIS HAPPENS." SATS WNL WITH ACTIVITY - SATS ABOVE 93% ON BIPAP, 2L PLUMBED IN.
--- NOTE | 2021-03-17 03:45 | NUR ---
PT TRANSFERRED TO ROOM 342 TO CARE OF OLIVIA MATHIS.
--- NOTE | 2021-03-17 03:58 | NUR ---
PATIENT TRANSFER FROM ICU 03. ARRIVED VIA W/C AND TWO PERSON ASSIST FROM W/C TO BED. REPORT TAKEN FROM ROSALIO BAKER. PATIENT PERSONAL BELONGINGS WITH HER. RT SETUP BIPAP WITH 2L O2 BLEED IN. TELEMETRY PLACED AND TECH REPORTS NSR WITH PAC,PVC, AT 65. PIVS INTACTS. CALL LIGHT IN REACH.
[2021-03-17 08:44] LABS: BASOPHILS ABSOLUTE AUTO 0.02 K/mm3 (0.00-0.23); BASOPHILS PERCENT AUTO 0 % (0-2); EOSINOPHILS ABSOLUTE AUTO 0.02 K/mm3 (0.00-0.68); EOSINOPHILS PERCENT AUTO 0 % (0-6); Hematocrit 38.6 % (33.0-51.0); Hemoglobin 12.5 g/dL (11.5-16.0); IMMATURE GRAN ABSOLUTE AUTO 0.02 K/mm3 (0.00-0.10); IMMATURE GRAN PERCENT AUTO 0 % (0-1); LYMPHOCYTES ABSOLUTE AUTO 1.02 K/mm3 (0.84-5.20); LYMPHOCYTES PERCENT AUTO 12 % (21-46); MONOCYTES ABSOLUTE AUTO 0.77 K/mm3 (0.16-1.47); MONOCYTES PERCENT AUTO 9 % (4-13); Mean Corpuscular HGB 28.5 pg (26.0-34.0); Mean Corpuscular HGB Conc 32.4 g/dL (31.5-36.5); Mean Corpuscular Volume 88 fL (80-100); NEUTROPHILS ABSOLUTE AUTO 6.92 K/mm3 (1.96-9.15); NEUTROPHILS PERCENT AUTO 79 % (41-73); Platelet Count 300 K/mm3 (150-400); RDW Standard Deviation 41.6 fL (35.1-46.3); Red Blood Cell Count 4.39 M/mm3 (3.80-5.20); White Blood Cell Count 8.77 K/mm3 (4.00-11.30)
[2021-03-17 09:04] LABS: Bun/Creatinine Ratio 33.1 (12.0-20.0); Calcium, Blood 9.8 mg/dL (8.5-10.1); Creatinine, Blood 1.33 mg/dL (0.40-1.00); Potassium, Blood 3.9 mmol/L (3.5-5.5); Troponin I 0.04 ng/mL (0.000-0.040)
--- NOTE | 2021-03-17 16:16 | NUR ---
SHIFT SUMMARY PT RESTING QUIETLY ON BIPAP DURING SHIFT REPORT. NO S/SX OF DISTRESS NOTED OR REPORTED. PER SHIFT REPORT, PT TX FROM ICU THIS AM. LIVES WITH DAUGHTER. PT WITH HRT FAILURE, DECLINING ANY INTERVENTIONS. FAMILY WORKING WITH PALLIATIVE CARE DISCUSSING C/C AND HOSPICE OPTIONS, PER REPORT. DAUGHTER HERE THIS AFTERNOON TO VISIT. PT UP TO SHOWER WITH ASSIST BY BRIM IRONER HAND. 1P SBA TO BSC USING FWW TO VOID. PT DOES GET CONFUSED AND FORGETFUL THRU OUT THE DAY. NO C/O PAIN OR SOB. DENIED FURTHER NEEDS. CALL LT IN REACH.
--- NOTE | 2021-03-17 16:50 | NUR ---
Spoke with primary RN Karina prior to visiting with Pt and discussed case. Pt sitting in chair upon arrival. Pt's daughter Heena at bedside. Pt denies pain and dyspnea at this time. Pt reports feeling better today. Offered to answer questions regarding conversations that have taken place. Heena reports Pt probably does not remember having conversation with PC RN yesterday. Revisted the option for hospice and educated on hospice philosophy. Discussed the importance of considering goals, values, and quality of life. Pt reports not being ready for the option of hospice. Answered questions and offered therapeutic listening. Pt appears mildly anxious from conversation. Heena expresses appreciation of visit. Ended visit to allow Pt to rest. Palliative Care will remain available.
--- NOTE | 2021-03-18 03:12 | NUR ---
SHIFT SUMMARY PATIENT HAD NO ACUTE CHANGES OBSERVED. AXOX 3 WITH CONFUSION. ONE ASSIST WITH FWW TO BATHROOM. ON BIPAP WITH 3-4 L O2 BLEED AND 5L O2 NC. PIVS REMAIN INTACT. SILK OPENER REPORTS PACED @70. CBG 81. VSS/AFEBRILE. DENIES PAIN, SOB, AND N/V. RT IN TO MONITOR BIPAP. CALL LIGHT IN REACH. BED IN LOWEST POSITION. WILL CONTINUE TO MONITOR UNTIL DAY SHIFT NURSE ASSUMES CARE.
[2021-03-18] MEDS ORDERED: ALBU2.5V5 INH (15:08)
[2021-03-18] MEDS ORDERED: ACET325 PO (15:12)
--- NOTE | 2021-03-18 16:30 | NUR ---
SHIFT SUMMARY NO ACUTE CHANGES TO PRESENT THIS SHIFT. PT ABLE TO D/C TO HOME THIS AFTERNOON. HOME O2 EVAL DONE. PT ABLE TO AMBULATE IN RM AND IN HALLS USING FWW ON RA, TOLERATING WELL. PER RT PT ABLE TO MAINTAIN O2 SATS AT 98% ON RA. PT'S DAUGHTER HERE TO TAKE PT HOME THIS AFTERNOON. MEDICATION CHANGE DISCUSSED WITH DAUGHTER; VERBALIZED UNDERSTANDING. MEDICATION FAXED TO PHARMACY, PER PT REQUEST. PT ASSISTED OUT VIA W/C WITH LOG TURNER AND DAUGHTER. PT UP TO BTHRM NEEDED THRU OUT THE DAY USING FWW AND SBA ONLY.
== END 2021-03-18 17:04 | disposition home or self-care (01) | DRG 291 ==
LOC: ER 03:30 → ICUW 05:00 → MEDS 05:00 → ICUE 05:00 → MEDS 03-17 03:48
PROVIDERS: Emergency Medicine; Family Medicine; ADMIT Internal Medicine
PROC: 5A09357 Assistance with Respiratory Ventilation, Less than 24 Consecutive Hours, Continuous Positive Airway Pressure (ICD-10-PCS; principal; 2021-03-16)
DX: I13.0 Hypertensive heart and chronic kidney disease with heart failure and stage 1 through stage 4 chronic kidney disease, or unspecified chronic kidney disease (principal); J96.21 Acute and chronic respiratory failure with hypoxia; I50.33 Acute on chronic diastolic (congestive) heart failure; Z66 Do not resuscitate; Z20.822 Contact with and (suspected) exposure to COVID-19; I08.3 Combined rheumatic disorders of mitral, aortic and tricuspid valves; I95.9 Hypotension, unspecified; N18.30 Chronic kidney disease, stage 3 unspecified; I42.1 Obstructive hypertrophic cardiomyopathy; I25.10 Atherosclerotic heart disease of native coronary artery without angina pectoris; I49.5 Sick sinus syndrome; D64.9 Anemia, unspecified; I25.5 Ischemic cardiomyopathy; I27.20 Pulmonary hypertension, unspecified; G47.33 Obstructive sleep apnea (adult) (pediatric); J44.9 Chronic obstructive pulmonary disease, unspecified; M81.0 Age-related osteoporosis without current pathological fracture; Z88.0 Allergy status to penicillin; Z88.1 Allergy status to other antibiotic agents; I25.2 Old myocardial infarction; Z88.2 Allergy status to sulfonamides; Z95.5 Presence of coronary angioplasty implant and graft; Z88.8 Allergy status to other drugs, medicaments and biological substances; Z79.899 Other long term (current) drug therapy; Z85.3 Personal history of malignant neoplasm of breast; Z79.02 Long term (current) use of antithrombotics/antiplatelets; Z99.81 Dependence on supplemental oxygen; Z90.12 Acquired absence of left breast and nipple; Z95.0 Presence of cardiac pacemaker; Z90.49 Acquired absence of other specified parts of digestive tract; Z98.890 Other specified postprocedural states; Z87.891 Personal history of nicotine dependence; Z90.89 Acquired absence of other organs
CPT/HCPCS: 0202U; 36415; 36600; 71045; 74220; 80048; 80053; 82803; 82947; 83880; 84484; 85025; 93005; 93010; 93308; 93321; 94644; 94660; 94761; 94762; 96374; 99285-25; A9270; J1265; J1644; J1940

== ENCOUNTER 2021-03-25 05:54 | Observation (INO) | payer MEDICARE, OTHER ==
[~2021-03-25] VITALS: Ht 165.1 cm; Wt 70.0 kg
[~2021-03-25 05:54] MED LIST changes: +ACET325 PO
[2021-03-25 06:08] LABS: PCO2 Arterial 57.3 mmHg (35-45); PO2 Arterial 99.6 mmHg (80-100)
[2021-03-25 06:09] LABS: pH Blood Arterial 7.27 (7.35-7.45)
[2021-03-25 06:14] LABS: BASOPHILS ABSOLUTE AUTO 0.12 K/mm3 (0.00-0.23); BASOPHILS PERCENT AUTO 1 % (0-2); EOSINOPHILS ABSOLUTE AUTO 0.37 K/mm3 (0.00-0.68); EOSINOPHILS PERCENT AUTO 3 % (0-6); Hematocrit 44.3 % (33.0-51.0); Hemoglobin 14.1 g/dL (11.5-16.0); IMMATURE GRAN ABSOLUTE AUTO 0.06 K/mm3 (0.00-0.10); IMMATURE GRAN PERCENT AUTO 1 % (0-1); LYMPHOCYTES ABSOLUTE AUTO 1.84 K/mm3 (0.84-5.20); LYMPHOCYTES PERCENT AUTO 16 % (21-46); MONOCYTES ABSOLUTE AUTO 0.74 K/mm3 (0.16-1.47); MONOCYTES PERCENT AUTO 6 % (4-13); Mean Corpuscular HGB 28.4 pg (26.0-34.0); Mean Corpuscular HGB Conc 31.8 g/dL (31.5-36.5); Mean Corpuscular Volume 89 fL (80-100); Mean Platelet Volume 10.1 fL (9.1-12.4); NEUTROPHILS ABSOLUTE AUTO 8.61 K/mm3 (1.96-9.15); NEUTROPHILS PERCENT AUTO 73 % (41-73); Platelet Count 420 K/mm3 (150-400); RDW Coefficient Variation 13.3 % (11.7-14.2); RDW Standard Deviation 43.7 fL (35.1-46.3); Red Blood Cell Count 4.97 M/mm3 (3.80-5.20); White Blood Cell Count 11.74 K/mm3 (4.00-11.30)
[2021-03-25 06:36] LABS: Albumin, Blood 3.8 g/dL (3.4-5.0); Albumin/Globulin Ratio 0.8 (0.8-1.8); Bilirubin, Total 0.4 mg/dL (0.1-1.0); Calcium, Blood 10.6 mg/dL (8.5-10.1); Creatinine, Blood 1.5 mg/dL (0.40-1.00); Globulin, Blood 4.7 g/dL (2.2-4.0); Potassium, Blood 4.7 mmol/L (3.5-5.5); Total Protein, Blood 8.5 g/dL (6.4-8.2); Troponin I 0.088 ng/mL (0.000-0.040)
--- NOTE | 2021-03-25 18:20 | NUR ---
SHIFT SUMMARY PT NEW ADMIT FROM ER FOR SHORTNESS OF BREATH. PLACED ON COMFORT CARE AND MEDICAL STATUS. RESTING COMFORTABLY IN BED. TOLERATING MECH SOFT DIET. O2 AT 3L VIA NC FOR COMFORT. DENIES PAIN. CALLS APPROPRIATELY FOR BATHROOM. PLAN IS TO DISCHARGE HOME ON HOSPICE.
--- NOTE | 2021-03-25 18:29 | NUR ---
Pt transitioned to comfort care off bipapa for breaks. brought pt a neck pillow and reviewed care with pt daughter. She cares for her mother and is struggling with conversation about hospice and and dying. She is tenative to persue further conversation. Thei has lead to delays in hospice and suffering. Spoke birefly with pt about comfort. She is a pt of doctor Rodríguez and will try to have him call her and tell her it is ok and will send chalian she is fearfull and grieving. Not sure she is capable of making decisions. Will assist daughter with plan of care.
--- NOTE | 2021-03-25 20:15 | NUR ---
PATIENT AWAKE, REQUESTING TYLENOL FOR PINK. ANSWERING QUESTIONS APPROPRIATELY, YET FORGETFUL. ABLE TO LAM PO TYLENOL WITHOUT DIFFICULTY. PATIENT REQUESTING HER OXYGEN TO BE INCREASED, OXYGEN INCREASED TO 4L/NC FROM 3L/NC FOR PATIENT COMFORT.
--- NOTE | 2021-03-26 00:40 | NUR ---
PATIENT C/O BACK PAIN WITH NO RELIEF WITH REPOSITIONING , GOOD PAIN CONTROL WITH MORPHINE IV. PATIENT REQUESTING "MY MASK" BIPAP PLACED BY RT. PATIENT VERBALIZED SHE IS FEELING BETTER NOW
--- NOTE | 2021-03-26 05:49 | NUR ---
SUMMARY PATIENT AWAKE MOST OF THE NIGHT. SLEEPING SHORT TIME WITH BIPAP IN PLACE. MEDICATED ONCE WITH TYLENOL AND ONCE WITH MORPHINE FOR PAIN. PATIENT UP TO BSC WITH MOD ASSIST TWICE DURING THE NIGHT.
--- NOTE | 2021-03-26 07:58 | NUR ---
COMFORT CARE ASSUMED CARE OF PT AT APPROX 0700. PT RESTING IN BED. REPOSITIONED AND SET UP FOR BREAKFAST. PT A&Ox4; CALM AND COOPERATIVE WITH CARE. PT ON 4L O2 VIA NC, SOB NOTED WITH SPEAKING, PT IS ABLE TO SPEAK IN FULL SENTENCES. LS DIM T/O. MURMUR NOTED. BS NORMOACTIVE x4 QUAD. BRUISING NOTED SCATTERED T/O. WILL CONTINUE TO MONITOR.
--- NOTE | 2021-03-26 14:26 | NUR ---
ADMIT: 03/25/21 DISCHARGE: DX: Acute Respiratory Failure CC: kwilcox EVANGELINA CALL: RESIDENCE: home CAREGIVER: Heena Veronica, Child, DX: STEMI, CHF, Acute respiratory failure, CKD-stage 3, see list DME: O2 and equipment, 4-wheeled walker CCM: Referral- 2019 HOME HEALTH: [facility] 2016 SUMMARY: 03/26/21- Per chart review with Dr. Newberry, pt is going to need coordination with hospice and is on comfort care here in the hospital. Pt lives with her daughter Heena. Pt is currently on 4L O2. Plan is to d/c the patient either or Fri. -kj
--- NOTE | 2021-03-26 15:24 | NUR ---
Pal Care comfort care visit made. Pt is up in chair visiting with her rudi, Heena. She states she is experiencing back discomfort that is not much different than her normal. She is dyspnic with conversation. Rudi waiting to meet with dc planning. VM left for Avani with pt's pref of Hospice agency and DME needed at home. Will visit daily while in hospital.
--- NOTE | 2021-03-26 19:38 | NUR ---
SHIFT SUMMARY TITRATED O2 TO 5L O2 VIA NC FOR COMFORT. NO OTHER ACUTE CHANGES NOTED. PLANS TO DISCHARGE HOME WITH HOSPICE THAT WILL ASSIST WITH BIPAP.
--- NOTE | 2021-03-27 06:10 | NUR ---
a/o x4. pleasant and cooperative. sob w/ brief interaction/conversation/movement. oxygen requirements increased at beginning of shift. n/c up to 6L from 5L per pt request. comfort measures performed by repositioning pt frequently, oral care, and pain control. pt up in chair x1 for positional comfort. transferring pt from n/c to bipap per pt request or oxygen needs. pt tolerated well. able to transfer to [facility] [place] w/ 1 person assist. uses call light appropriately. bed alarm on. call light within reach.
--- NOTE | 2021-03-27 07:27 | NUR ---
AM NOTE A&Ox4. PT CALM AND COOPERATIVE WITH CARE. PT BREATHING IS LABORED, UNEVEN AND TACHYPNIC AT 24-28 BREATHS PER MIN, MEDICATED WITH ROXANOL, WILL CONTINUE TO MONITOR. LS DIM T/O. PT ON 7L O2 VIA NC SPO2 100%, TITRATED TO 5L, WILL CONTINUE TO MONITOR. PT REPORTS BACK PAIN, MEDICATED WITH ROXANOL. HR REG,REG MURMUR PRESENT. PT BS HYPOACTIVE x4 QUAD, NONTENDER ON PALPATION. VS TAKEN, RESTARTING HOME MEDICATIONS TODAY. WILL CONTINUE TO MONITOR.
--- NOTE | 2021-03-27 11:16 | NUR ---
03/27/21- MET WITH PT AND DAUGHTER TO DISCUSS DISCHARGE PLANS AND WHAT NEEDS THEY WOULD NEED FOR THE PT TO GO HOME ON HOSPICE. THEY HAVE SELECTED TO GO [facility]. REACHED OUT TO JULY WITH [facility] AND SHE WILL CONTACT THE DAUGHTER TO DISCUSS THEIR SERVICES AND EQUIPMENT SHE WILL NEED IN THE HOME. PROVIDED A LIST OF EQUIPMENT ALREADY DISCUSSED, HOSPITAL BED, BEDSIDE COMMODE, BEDSIDE TABLE, AND O2. DISCUSSED THE DAUGHTER'S CONCERNS ABOUT GETTING POA. IT SEEMS THAT WITH THE PT ON HOSPICE, THIS WILL NOT BE AN ISSUE. PT LIVES IN [place] AND HAS ALL IT'S UTILITIES. THERE ARE 3 STEPS TO GET INTO THE HOME THAT SHE HAS NO CONCERNS GOING UP OR DOWN. DR. VALDEZ WAS ABLE TO COME AND DISCUSS PLANS WITH DAUGHTER AND PT AND ANSWER DAUGHTER'S QUESTIONS REGARDING FOLLOW UP WITH SPECIALIST. HE STATED THAT SHE WILL NOT NEED TO KEEP UPCOMING APPTS, DAUGHTER IS GOING TO CALL AND CANCEL THEM. PT TOLD DR. VALDEZ THAT SHE IS NOT COMFORTABLE GOING HOME TODAY. PLAN IS FOR HER TO D/C HOME TOMORROW WITH HOSPICE. WILL WORK WITH JULY ON GETTING HOSPICE ORDERS SIGNED AND SENT TO [facility] AND GETTING PT AND FAMILY SET UP IN THE HOME TO TAKE THE PT HOME TOMORROW. -ALE
--- NOTE | 2021-03-27 13:38 | NUR ---
[facility] CARE COMFORT CARE VISIT AND CASE CONFERENCE WITH [facility] JEWEL, AND GORGE. 11 am - I met with gorge outside of our office, after visit with mom, Dr Newberry & JEWEL/Avani. Gorge expressed tearfully that her mom does not seem to understand that she is dying and does not want to talk about it or try to understand. Gorge states pt expressed that she just feels like she is being rushed back home. She has always been reluctant to discuss her health issues and what that means for her. Gorge states pt has said, "when the lord is ready to take me, he will" and that is the extent of her willingness to talk about it. Heena Grijalva was appreciative of JEWEL/Avani's visit and Dr lanza to help with coordination of plans for home with hospice now planned for tomorrow. Gorge states she needed someone else to have these conversations with her mom. She is expressing CG fatigue and looks distressed. She states she is having trouble getting her mom's affairs handled and her mom wanted to do a durable POA to help. I was able to get a [place] form for her and contacted our notary to request assist with signing if they are able to complete. I recommended that she contact a family six pack loader operator with any questions as we are unable to advise families on POA forms. Support and encouragement for self care provided to Heena. I also requested our Geology Instructor for a visit to pt for support and to possibly give Yenny a comfortable environment to be able to talk to someone about her feelings re: life/health/ if desired. Comfort care visit made later in the afternoon. Pt was supine in bed, sound asleep. KINESIOLOGIST in room also. Pt appears more dyspnic at rest than during my visit yesterday. I did not disturb her at this time.
--- NOTE | 2021-03-27 16:58 | NUR ---
SHIFT SUMMARY NO ACUTE CHANGES NOTED. BREATHING IMPROVED WITH ROXANOL x2 DURING SHIFT. PT REPROTING HEART BURN, NOTIFIED DR VALDEZ, NEW ORDERS ENTERED. PLANS TO BE TRANSFERED TO ROOM 308. REPORT GIVEN TO RN ASSUMING CARE OF PATIENT.
--- NOTE | 2021-03-27 18:12 | NUR ---
PT ARRIVED TO ROOM AT 1719 AOX4 AND COOPERATIVE OF CARE VIA WHEEL CHAIR. PT PLEASANT AND ABLE TO FOLLOW DIRECTION. PT SEEMS COMFORTABLE AT THIS TIME ON 5L OF O2. PT ORIENTED TO CALL LIGHT AND TV. NO DISTRESS NOTED AT THIS TIME WILL CONTINUE TO MONITOR.
--- NOTE | 2021-03-28 04:55 | NUR ---
DATABASE OPERATOR SUMMARY NO ACUTE CHANGES THIS SHIFT. PT AAOX4 AND PLEASANT. CALLS APPROPRIATELY FOR ASSISTANCE. MEDICATED X1 AT START OF SHIFT FOR CHRONIC BACK PAIN WITH 5 MG ROXANOL WITH GOOD EFFECT. PT HAS BEEN ABLE TO SLEEP MOST OF SHIFT. PT HOPING TO DC BACK HOME WITH DTR TODAY ON HOSPICE.
--- NOTE | 2021-03-28 09:28 | NUR ---
DAUGHTER PRESENT. PT ABLE TO EAT BREAKFAST ON HER OWN. MEDS GIVEN, NO COMPLAINTS.
--- NOTE | 2021-03-28 10:15 | NUR ---
[facility] Comfort Care Visit - Pt in bed, daughter at bedside working on POA. Another coworker was trying to arrange a notary to visit pt/rudi prior to d/c for completing the [place] durable POA. Pt appears less dyspnic at rest today. She is very quiet as always but agrees that she feels less SOB at this time. Pt denies pain currently. Plan is for d/c home with hospice at noon per rudi. Rudi expressed thanks to [facility] Care team for visits during her mom's stay.
[2021-03-28] MEDS ORDERED: Calcium Carbon500 MG PO (11:46)
[2021-03-28] MEDS ORDERED: ONDA4ODT MM (11:47)
[2021-03-28] MEDS ORDERED: MORP20L SL (11:47)
[2021-03-28] MEDS ORDERED: TRANSDERM-SCOP1 EAC5 TD (11:47)
--- NOTE | 2021-03-28 12:11 | NUR ---
03/28/21- Received call from [facility], they will not be able to see the pt prior to her discharge. Will have [facility] do this in the home. Notified daughter. -harjitmet with pt and daughter, pt is ready to go home today. Transportation set up for noon home by wheelchair. Melissa with [facility] helped coordinate delivery of DME prior to the pt going home. Daughter and pt have filled out POA paperwork and need notary. Will try to have [facility] see them prior to d/c. If not, Mir has a notary and Melissa will note in the chart that they may need to go to the home. -harjit
--- NOTE | 2021-03-28 12:28 | NUR ---
PT DISCHARGED HOME ON HOSPICE. IV REMOVED, NO SS OF INFECTION NOTED. MEDS AND INFORMATION SENT OVER TO HOSPICE. PT TAKEN HOME VIA DAUGHTER AND TRANSPORT.
== END 2021-03-28 12:18 | disposition hospice, home (50) ==
LOC: ER 05:54 → PCU 05:55 → MEDS 03-27 17:17
PROVIDERS: Emergency Medicine; ADMIT Internal Medicine
DX: J96.21 Acute and chronic respiratory failure with hypoxia (principal); I13.0 Hypertensive heart and chronic kidney disease with heart failure and stage 1 through stage 4 chronic kidney disease, or unspecified chronic kidney disease; I50.33 Acute on chronic diastolic (congestive) heart failure; N18.32 Chronic kidney disease, stage 3b; I08.3 Combined rheumatic disorders of mitral, aortic and tricuspid valves; I27.20 Pulmonary hypertension, unspecified; I42.1 Obstructive hypertrophic cardiomyopathy; J44.9 Chronic obstructive pulmonary disease, unspecified; I25.10 Atherosclerotic heart disease of native coronary artery without angina pectoris; I25.2 Old myocardial infarction; I70.1 Atherosclerosis of renal artery; M81.0 Age-related osteoporosis without current pathological fracture; E87.2 Acidosis; R62.7 Adult failure to thrive; Z79.02 Long term (current) use of antithrombotics/antiplatelets; Z95.0 Presence of cardiac pacemaker; Z87.891 Personal history of nicotine dependence; Z99.81 Dependence on supplemental oxygen; Z95.5 Presence of coronary angioplasty implant and graft; Z66 Do not resuscitate; Z85.3 Personal history of malignant neoplasm of breast; Z90.12 Acquired absence of left breast and nipple; Z88.1 Allergy status to other antibiotic agents; Z88.0 Allergy status to penicillin; Z88.2 Allergy status to sulfonamides; Z88.5 Allergy status to narcotic agent; Z88.8 Allergy status to other drugs, medicaments and biological substances; Z68.33 Body mass index [BMI] 33.0-33.9, adult
CPT/HCPCS: 36415; 36600; 71045; 80053; 82803; 83605; 83880; 84484; 85025; 87040; 93005; 93010; 94644; 94660; 94760; 94762; 96365; 96367; 96372; 96375; 96376; 99285-25; A9270; G0378; J1650; J2185; J2270; J2930; J3475